=== PATIENT | female | born 1940 | race Caucasian/White ===

== ENCOUNTER → 2016-12-16 | Outpatient (CLI) | payer MEDICARE ==
--- NOTE | 2016-12-16 10:29 | REPMRS ---
Patient History The patient states she has not had a clinical breast exam in over a year. Patient is postmenopausal. No known family history of cancer. Digital Woman Screen Mammo: December 16, 2016 - Exam #: [id number] Bilateral CC and MLO view(s) were taken. Technologist: Daly Mike, Technologist Prior study comparison: December 11, 2015, digital woman screen mammo performed at [facility]. January 09, 2015, digital woman screen mammo performed at [facility] to [facility]. FINDINGS: There are scattered fibroglandular densities. There has been no change in the appearance of the mammogram from the prior studies. There is a mild amount of residual fibroglandular tissue which is fairly symmetric. There is no interval development of dominant mass, architectural distortion, or clustered microcalcification suggestive of malignancy. ASSESSMENT: BI-RADS/ACR category 1 mammogram. Negative. Recommendation Routine screening mammogram in 1 year (for women over age 40). This mammogram was interpreted with the aid of an FDA-approved computer-aided dectection system. Electronically Signed By: Fransico Phelan MD 12/16/16 2442
== END ==
LOC: M WHC 09:44
PROVIDERS: ATTEND Obstetrics & Gynecology
DX: Z12.31 Encounter for screening mammogram for malignant neoplasm of breast (principal); Z78.0 Asymptomatic menopausal state

== ENCOUNTER → 2017-12-29 | Outpatient (CLI) | payer MEDICARE | LOC: M WHC 10:24 | DX: Z12.31 Encounter for screening mammogram for malignant neoplasm of breast (principal) | CPT/HCPCS: 77067 ==

== ENCOUNTER → 2018-12-27 | Outpatient (CLI) | payer MEDICARE ==
--- NOTE | 2018-12-27 13:48 | REPMRS ---
Patient History The patient states she had a clinical breast exam in 11/2018. Patient is postmenopausal and has history of other cancer at age 73. No known family history of cancer. No Hormone Replacement Therapy 3D TOMOSYNTHESIS WAS PERFORMED. The [facility] lifetime risk for breast cancer is 3.0%. Digital Woman Screen Mammo: December 27, 2018 - Exam #: [id number] Bilateral CC and MLO view(s) were taken. Technologist: Daly Mike, Technologist Prior study comparison: December 29, 2017, bilateral digital woman screen mammo performed at [facility]. December 16, 2016, digital woman screen mammo performed at [facility]. FINDINGS: There are scattered fibroglandular densities. There has been no change in the appearance of the mammogram from the prior studies. There is a mild amount of residual fibroglandular tissue which is fairly symmetric. There is no interval development of dominant mass, architectural distortion, or clustered microcalcification suggestive of malignancy. Assessment: BI-RADS/ACR category 1 mammogram. Negative Mammogram. Recommendation Routine screening mammogram in 1 year (for women over age 40). This mammogram was interpreted with the aid of an FDA-approved computer-aided dectection system. Electronically Signed By: Fransico Phelan MD 12/27/18 8955
== END ==
LOC: M WHC 12:19
PROVIDERS: ATTEND Obstetrics & Gynecology
DX: Z12.31 Encounter for screening mammogram for malignant neoplasm of breast (principal); Z85.9 Personal history of malignant neoplasm, unspecified

== ENCOUNTER → 2019-12-29 | Outpatient (CLI) | payer MEDICARE ==
--- NOTE | 2019-12-29 12:12 | REPMRS ---
Patient History The patient states she had a clinical breast exam in 2019. No known family history of cancer. No Hormone Replacement Therapy 3D TOMOSYNTHESIS WAS PERFORMED. The [facility] lifetime risk for breast cancer is 2.7%. Elva lemos. Digital Woman Screen Mammo: December 29, 2019 - Exam #: [id number] Bilateral CC and MLO view(s) were taken. Technologist: Trish Celestin, Technologist Prior study comparison: December 27, 2018, bilateral digital woman screen mammo performed at [facility]. December 29, 2017, bilateral digital woman screen mammo performed at [facility]. FINDINGS: There are scattered fibroglandular densities. There has been no change in the appearance of the mammogram from the prior studies. There is a mild amount of residual fibroglandular tissue which is fairly symmetric. There is no interval development of dominant mass, architectural distortion, or clustered microcalcification suggestive of malignancy. Assessment: BI-RADS/ACR category 1 mammogram. Negative Mammogram. Recommendation Routine screening mammogram in 1 year (for women over age 40). This mammogram was interpreted with the aid of an FDA-approved computer-aided dectection system. Electronically Signed By: Fransico Phelan MD 12/29/19 7330
== END ==
LOC: M WHC 11:00
PROVIDERS: ATTEND Obstetrics & Gynecology
DX: Z12.31 Encounter for screening mammogram for malignant neoplasm of breast (principal)

== ENCOUNTER → 2021-01-01 | Outpatient (CLI) | payer MEDICARE ==
--- NOTE | 2021-01-01 14:06 | REPMRS ---
Patient History The patient states she had a clinical breast exam in December 2020. No known family history of cancer. No Hormone Replacement Therapy Patient states no breast complaints today. Patient has signed MRS History Sheet. Digital Woman Screen Mammo: January 01, 2021 - Exam #: [id number] Bilateral CC and MLO view(s) were taken. Technologist: Natalie Garcia, Technologist Prior study comparison: December 29, 2019, bilateral digital woman screen mammo performed at [facility]. December 27, 2018, bilateral digital woman screen mammo performed at [facility]. FINDINGS: There are scattered fibroglandular densities. Screening. Digital screening (2D) mammography was performed bilaterally in the CC and MLO projections. Additionally, breast tomosynthesis (3D mammography) was performed bilaterally in the CC and MLO projections. Todays exam was compared to the prior exam/exams. By history, the patient has no complaints of a palpable breast abnormality or other significant breast complaints. The breasts are unchanged in size and shape. There are no david-soft tissue densities or spiculated masses. There is no internal architectural distortion. Once again, stable benign appearing calcifications are seen.There are no suspicious david-calcific clusters. Skin thickening or nipple retraction is not present. IMPRESSION: BI-RADS Category 2- Benign Findings. There is no evidence of malignant alteration of the breasts. Followup examination recommended in one year. The Volpara volumetric breast density category is B, there are scattered areas of fibroglandular densities. This mammogram was read with the assistance of [employer],an FDA approved computer aided detection system for mammography. The lifetime Tyrer-Cuzick score is 2.4 % Negative x-ray reports should not delay surgical consultation if a dominant or clinically suspicious mass is present. Not all breast cancers can be identified by mammography. Therefore, we recommend that you continue to perform regular breast self-examination and physical examination and then promptly contact your physician of any concerns or changes. Adenosis and dense breasts may obscure an underlying neoplasm. Assessment: BI-RADS/ACR category 2 mammogram. Benign Findings. Recommendation Routine screening mammogram of both breasts in 1 year. Electronically Signed By: Alvaro Nicholson DO 01/01/21 0989
== END ==
LOC: M WHC 11:28
PROVIDERS: ATTEND Obstetrics & Gynecology
DX: Z12.31 Encounter for screening mammogram for malignant neoplasm of breast (principal)

== ENCOUNTER → 2021-01-17 | Outpatient (CLI) | payer MEDICARE ==
--- NOTE | 2021-01-17 14:08 | REP ---
INDICATION: PMB/N95.0. COMPARISON: None. TECHNIQUE: Transvesical and transvaginal imaging. FINDINGS: The uterus measures 9.5 x 4 x 4.6 cm. The parenchymal echo pattern is within normal limits. The endometrial echo complex is markedly abnormally thickened and markedly heterogenous with both cystic and apparent solid nodular regions. The greatest thickness measures approximately 3 cm. Neither ovary was seen transvesical air transvaginally. Urinary bladder measures 7 x 6 by 5 cm IMPRESSION: Markedly abnormal endometrial echo complex as described above. Neoplasm cannot be ruled out. Exam limitations as described above. <Electronically signed by Alvaro Nicholson > 01/17/21 5710
== END ==
LOC: M WHC 12:28
PROVIDERS: ATTEND Obstetrics & Gynecology
DX: N95.0 Postmenopausal bleeding (principal)

== ENCOUNTER → 2021-02-01 | Outpatient (CLI) | payer MEDICARE ==
[~2021-02-01] MED LIST: AMLO2.5T3 PO; ATEN50TA2 PO; CETI5SOL3 PO; DIAZ2TAB PO; FAMO20TA5 PO; INDA25TAB PO; LEVO150T7 PO; LOSA100T50 PO; MAGN400C PO; MELO15TA28 PO; NOXI1TAB PO; POTA1TAB23 PO; SENN8.6T28 PO; SIMV20TA22 PO; TRAM1CAP15 PO; TRAV04OPD OD
== END ==
LOC: M LABSMTC 09:18
PROVIDERS: ATTEND Anesthesiology
DX: Z01.818 Encounter for other preprocedural examination (principal); Z11.52 Encounter for screening for COVID-19

== ENCOUNTER 2021-02-06 09:27 | Day surgery (SDC) | payer MEDICARE ==
[~2021-02-06] VITALS: Ht 165.1 cm; Wt 105.2 kg
[~2021-02-06 09:27] MED LIST changes: +KETOROLAC 60MG 2ML VIAL As Ordered ONE; +LIDOCAINE 2% 100MG/5ML SDV (FOR ANES.) As Ordered ONE; +LR 1,000 ML IV ONE; +MIDAZOLAM INJ 2MG/2ML VIAL (J2250 PER 1MG) As Ordered ONE; +ONDANSETRON 4MG/2ML VIAL As Ordered ONE; +dexameTHASONE 4 MG/ML 1ML VIAL (J1100 PER 1MG) As Ordered ONE; +fentaNYL 100 MCG/2 ML INJECTION (J3010) As Ordered ONE; +propofoL 200 MG/20 ML VIAL As Ordered ONE
--- OUTSIDE RECORDS SUMMARY | 2021-02-06 09:33 | CCD ---
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 Her contract accountant orders blood work every 6 months, and adds the hemoglobin A1c and TSH at my request, so she will continue having that done through her contract accountant. 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 The patient is educated on the risks, benefits and possible complications, including but not limited to pain, infection, bleeding, scarring, and numbness at the injection site. She verbalizes understanding and agreement. The injection site is marked, and then the left knee is scrubbed with Betadine. A proper timeout is taken, consistent with the guidelines. The injection site is numbed with a small amount of 1% lidocaine, and then the joint is injected using a medial approach with 5 cc of a mixture of 1 ml of Kenalog-40 (triamcinolone acetonide 40 mg/ml, Lot #[id number], Exp: 02/2022) and 4 mL of 1% lidocaine (Lot #[id number], Exp: 05/2024). The knee is cleaned and a bandaid is applied. The patient tolerates the procedure well and there are no complications. We very carefully and thoroughly reviewed the cautions for the next few days in terms of how much to use the knee, and specifically not to do physical therapy. 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 The patient is educated on the risks, benefits and possible complications, including but not limited to pain, infection, bleeding, scarring, and numbness at the injection site. She verbalizes understanding and agreement. The injection site is marked, and then the right knee is scrubbed with Betadine. A proper timeout is taken, consistent with the guidelines. The injection site is numbed with a small amount of 1% lidocaine, and then the joint is injected using a medial approach with 5 cc of a mixture of 1 ml of Kenalog-40 (triamcinolone acetonide 40 mg/ml, Lot #[id number], Exp: 02/2022) and 4 mL of 1% lidocaine (Lot #[id number], Exp: 05/2024). The knee is cleaned and a bandaid is applied. The patient tolerates the procedure well and there are no complications. We very carefully and thoroughly reviewed the cautions for the next few days in terms of how much to use the knee, and specifically not to do physical therapy. I advised Mary Ann that after 2 days she can go back to normal use of her knees Problem Gastroesophageal reflux disease without esophagitis K21.9 Active confirmed 795659779 Problem Primary osteoarthritis, left hand M19.042 Active confirmed 907747296081810 ALLERGIES Allergen (clinical drug ingredient) Drug/Non Drug Allergy do cumented on EMR Reaction Allergy Type Onset Date Status sulfamethoxazole / trimethoprim Bactrim([facility] Code:[address]- 01) itching, swelling, fever Drug Allergy Active Penicillin V-potassium itching, swelling, fever Drug Aller gy Active ENCOUNTERS from 1942 to 2020-11-23 Encounter Location Date Provider Diagnosis [place] [id number] [facility] [phone] [place] [address] Oct, Ana Davenport Tricompartment osteoarthriti s of right knee M17.11 and Arthritis of left knee M17.12 IMMUNIZATIONS Vaccine Route Administration Date Status Influenza Pharmacy Given Unknown Jan 23, 2020 Adminis tered Influenza 18 yrs & older Flublok Unknown Feb 02, 2019 Administered Zoster 50mcg/0.5mL Shingrix Unknown Apr 11, 2019 Admi nistered Zoster 50mcg/0.5mL Shingrix Unknown Feb 02, 2019 Admi nistered Influenza (High Dose 65 & up) Unknown Feb 18, 2018 Ad ministered Pneumococcal Adult 0.5mL Pneumovax 23 Unknown Mar 09 17 Administered Pneumococcal 0.5mL Prevnar 13 IM Intramuscular Apr 02, 2015 A dministered Influenza 6mo & up Fluzone IM Intramuscular Mar 11, 2010 Admi nistered SOCIAL HISTORY Tobacco Use: Social History Observation Description Date Details (start date - stop date) Former Smoker Sex Assigned At : Social History Observation Description Sex Assigned At Unknown Audit Question Answer Notes Total Score: 0 Interpretation: Alcohol Education Sexual Hx: Question Answer Notes Had sex in the last 12 months (vaginal, oral, or anal)? Yes Have you ever had an STD? No with Men only Use protection? No Drug and Alcohol Question Answer Notes Total Score: 0 Interpretation: No problems reported BMI Care Goal Follow-Up Question Answer Notes Above Normal BMI Follow-Up Dietary management educatio n, guidance, and counseling Tobacco Use: Question Answer Notes Are you a: former smoker How long has it been since you last smoked? > 10 years REASON FOR REFERRAL No Information VITAL SIGNS Weight 231.6 lbs Oct, Height 65 in Oct, BMI 38.54 kg/m2 Oct, Heart Rate 64 /min Oct, Respiratory Rate 18 /min Oct, Temperature 97.8 degrees Fahrenheit Oct, Oximetry 97% Oct, Blood pressure systolic 128 mm Hg Oct, Blood pressure diastolic 62 mm Hg Oct, MEDICATIONS Medication SIG (Take, Route, Frequency, Duration) Notes Start Da te End Date Status Physical Therapy evaluate and treat m54.5, low back pain 1-3X/we ek x 25 Sep, 2019 Active Meloxicam 15 MG 1 tablet Orally Once a day for 90 day(s) 1 Mar, Active St Gale Wort 1000 MG 1 capsule before a meal Orally Once a day for 30 day(s) Active Indapamide 2.5 MG 1 tablets Orally Twice a day for 90 days Mar, Active traMADol HCl 50 MG 1 tablet Orally every 6 hrs as needed, mdd=4 for 30 days Oct, Active Simvastatin 20 MG 1 tablet in the evening Orally Once a day for 90 da ys Active Synthroid 150 MCG 1 tablet every morning on an empty stomach Orally Once a day for 90 days Dec, Active Magnesium 300 MG 1 capsule with a meal Orally Once a day for 30 day(s ) Active Physical Therapy evaluate and treat m25.561, m25.652, pain in both knees for pain in both knees, M25.56 3 x/wk x Sep, Active ZyrTEC 10 MG 1 tablet Orally Once a day Active amLODIPine Besylate 2.5 MG 1 tablet Orally Once a day for 90 day s Mar, Active diazePAM 2 MG 1 tablet as needed for trave l anxiety Orally Twice a day, mdd=2 for 15 days Jan, Active Multivitamins 1 tablet Orally Once a day Active Famotidine 20 MG 1 tablet Orally Twice a day for 90 days 1 0 Jan, 2019 Active Atenolol 50 MG 1 tablet Orally Once a day for 90 days Active Travatan 0.004 % 1 drop into affected eye every evening Ophthalm ic Once a day Active Lac-Hydrin 12 % 1 application to affected area Externall y Twice a day as needed Mar, Active Vitamin C 500 MG as directed Orally Active Vitamin D (Cholecalciferol) 25 MCG (1000 UT) 1 capsule Orally Once a day for 30 day(s) Active Cozaar 100 mg 1 tablet Orally Once a day for 90 days 18 , 2013 Active Potassium Chloride 10 MEQ 1 tablet Orally Once a day for 90 Active Physical Therapy evaluate and treat mechanical eval & tx of hands M19.041, M19.042 (arthritis of hands) 3 x/wk x for 30 Days August, Active PROCEDURES from 1942 to 2020-11-23 Procedure Date Ordered Result Body Site Medication: Kenalog 40mg/1mL IA (Triamcinolone) 2020-11-14 N/A Medication: 1% Lidocaine intradermal (xylocaine) 2020-11-14 N/A RESULTS No Results REASON FOR VISIT bilateral knee injections MEDICAL (GENERAL) HISTORY Type Description Date Medical History hypertension Medical History hyperlipidemia Medical History diabetes Medical History hypothyroidism Medical History morbid obesity Medical History palpitations Medical History mild aortic insufficiency Medical History endometrial hyperplasia (Dr. Gonsales) Medical History ichthyosis Medical History hemorrhoid Medical History chronic idiopathic urticaria Medical History hypokalemia/hypo-magnesium Medical History glaucoma Medical History chronic constipation Medical History osteoarthritis Surgical History hysteroscopy 1999 Hospitalization History No Hospitalization history informati on Goals Section No Information Health Concerns No Information MEDICAL EQUIPMENT No Information MENTAL STATUS No Information FUNCTIONAL STATUS No Information ASSESSMENTS Encounter Date Diagnosis Assessment Notes Treatment Notes Treatm ent Clinical Notes Oct, Tricompartment osteoarthritis of right k nee (ICD-10 - M17.11) Informed consent is reviewed and signed. The patient is educated on the risks, benefits and possible complications, including but not limited to pain, infection, bleeding, scarring, and numbness at the injection site. She verbalizes understanding and agreement. The injection site is marked, and then the right knee is scrubbed with Betadine. A proper timeout is taken, consistent with the guidelines. The injection site is numbed with a small amount of 1% lidocaine, and then the joint is injected using a medial approach with 5 cc of a mixture of 1 ml of Kenalog-40 (triamcinolone acetonide 40 mg/ml, Lot #[id number], Exp: 02/2022) and 4 mL of 1% lidocaine (Lot #[id number], Exp: 05/2024). The knee is cleaned and a bandaid is applied. The patient tolerates the procedure well and there are no complications. We very carefully and thoroughly reviewed the cautions for the next few days in terms of how much to use the knee, and specifically not to do physical therapy. I advised Mary Ann that after 2 days she can go back to normal use of her knees Oct, Arthritis of left knee (ICD-10 - M17.12) Informed consent is reviewed and signed. The patient is educated on the risks, benefits and possible complications, including but not limited to pain, infection, bleeding, scarring, and numbness at the injection site. She verbalizes understanding and agreement. The injection site is marked, and then the left knee is scrubbed with Betadine. A proper timeout is taken, consistent with the guidelines. The injection site is numbed with a small amount of 1% lidocaine, and then the joint is injected using a medial approach with 5 cc of a mixture of 1 ml of Kenalog-40 (triamcinolone acetonide 40 mg/ml, Lot #[id number], Exp: 02/2022) and 4 mL of 1% lidocaine (Lot #[id number], Exp: 05/2024). The knee is cleaned and a bandaid is applied. The patient tolerates the procedure well and there are no complications. We very carefully and thoroughly reviewed the cautions for the next few days in terms of how much to use the knee, and specifically not to do physical therapy. I advised Mary Ann that after 2 days she can go back to normal use of her knees PLAN OF TREATMENT Treatment Notes Test Name Order Date DRAIN/INJECT,JOINT/BURSA(major joint) 2020-11-14 Next Appt Details as scheduled in [place], will repeat knee injections in 4 months Reason: Provider Name:Ana Davenport, 12-0 8 01:00:00 PM, [id number], , [place], [id number], Insurance Providers Payer Name Payer Address Payer Phone Insured Name Patient Relati onship to Insured Coverage Start Date Coverage End Date MEDICARE BLUE O [id number] [id number] [place] self
--- OUTSIDE RECORDS SUMMARY | 2021-02-06 09:33 | CCD | Continuity of Care Document ---
Author Author Mary Ann BURGOS Organization Unknown Address [address] [place] [address] Phone [phone] Problems Active Problems Provider Date Endometrial hyperplasia Carla Burgos MD Onset: 2 Social History Type Date Description Comments Sex Unknown Tobacco Use Start: Unknown End: Unknown Quit 1967 Tobacco Use Start: Unknown Non-Smoker, Non-Drinker, Non-Patricio g User Smoking Status Reviewed: 01/01/21 Non-Smoker, Non-Drinker, Non- Drug User Tobacco Use Start: Unknown End: Unknown Patient is a former smoker Exercise Type/Frequency Exercises regularly Allergies, Adverse Reactions, Alerts Active Allergies Criticality Reaction | Severity Comments Date Sulfa Unable to assess criticality 12/31/2006 PCN Unable to assess criticality 12/31/2006 Medications Active Medications SIG Qnty Indications Ordering Provide r Date Fluconazole 150mg Tablets 1 by mouth now and one tomorrow 2tabs B37.3 Carla Burgos MD 12/29/2017 Cozaar 50mg Tablets po bid Carla Burgos MD 02/25/2011 Travatan 0.004% Solution 1 Drop Each Eye Q hs Carla Burgos MD 12/31/2006 Levothyroxine 150McG Tablets Carla Burgos MD 12/23/2005 Zocor 20mg Tablets Carla Burgos MD 12/10/2005 Atenolol 25mg Tablets Carla Burgos MD 12/10/2005 Indapamide 1.25mg Tablets Carla Burgos MD 12/10/2005 Potassium Chloride 20Meq Packet Unknown Meloxicam 7.5mg Tablets Unknown Acetazolamide 250mg Tablets Unknown Immunizations Description No Information Available Vital Signs Date Vital Result Comment 01/01/2021 10:37am BP Systolic 134 mmHg BP Diastolic 66 mmHg Height 64 inches 5'4" Weight 230.00 lb BMI (Body Mass Index) 39.5 kg/m2 BSA (Body Surface Area) 2.08 m2 12/29/2019 10:14am BP Systolic 158 mmHg BP Diastolic 70 mmHg Height 64 inches 5'4" Weight 239.00 lb BMI (Body Mass Index) 41.0 kg/m2 BSA (Body Surface Area) 2.11 m2 Results Test Acquired Date Facility Test Result H/L Range Note Thinprep W/Reflex HR HPV If Asc-US 01/01/2021 [facility] TP Reflex HPV ASCUS Normal Normal 1 TP Reflex HPV ASCUS SEE IMAGE Gynecologic Biopsy 01/01/2021 [facility] Gynecologic Biopsy See Results 2 Gynecologic Biopsy SEE IMAGE 1 SPECIME N PART A. Cervical, Endocervical, ThinPrep Pap (Rn Wound Care) CYTOLOGY HX-------- Other Information: Post-menopausal Previous Normal Pap: 12/29/19 FINAL DIAGNOSIS---- INTERPRETATION: Negative for Intraepithelial Lesion or Malignancy. SPECIMEN ADEQUACY:Satisfactory for evaluation. Endocervical/transformation zone component present. 2 SPECIME N PART A. Endometrial CLINICAL HX-------- N95.0 Postmenopausal bleeding FINAL DIAGNOSIS---- A. Endometrial: - Scant fragments of benign, inactive, s uperficial endometrial tissue in a background of mucin and blood. - Fragments of benign endometrium with f eatures suggestive of an endometrial polyp. - See comment. DIAGNOSIS COMMENT-- In the appropriate clinical setting, which includes a post-menopausal patient with a thin endometrial stripe on ultrasound, scant fragments of tissue may in fact be diagnostic and account manager sales representative of the endometrium. Studies have documented highly variable rates of endometrial atrophy that range from 25-82% as the cause of post-menopausal bleeding. Additionally, atrophic endometrium can occur in reproductive-age patients with premature ovarian failure, either idiopathic or due to radiation or chemotherapy for malignancy. Clinical correlation is advised. Diagnosis of Endometrial Biopsies and Curettings: A Practical Approach. Zack Kelley, Rohit Veronica. 2005. Gonzalez. p.[phone]. MICRO DIAGNOSIS---- A. The stain quality is adequate. The microscopic findings are reflected in the diagnosis. GROSS DESCRIPTION-- A. Received in formalin; Designated: "Endometrial" Inventory: Mucus, tissue, clot Aggregate dimensions: 2.0 x 1.0 x 0.3 cm The specimen is submitted entirely as (A1), multiple pcs. Procedures Date Code Description Status 01/01/2021 80026 Office/Outpatient Established Lo w MDM 20-29 Min Completed 01/01/2021 88240 Endometrial Biopsy W/O Cervical Dilation Completed 12/29/2017 18566953 Mammogram Completed 01/09/2015 [id number] Mammogram Completed 02/25/2011 [id number] Bone Mineral Density Test Comple scot 10/19/2005 [id number] Bone Mineral Density Test Comple [employer] Description No Information Available Encounters Type Date Location Provider Dx Diagnosis Office Visit 01/01/2021 10:30a [facility] risk lead Carla Burgos MD N9 5.0 Postmenopausal bleeding Z91.89 Oth personal risk factors, n ot elsewhere classified Z01.411 Encntr for director of design exam (general ) (routine) w abnormal findings Z12.4 Encounter for screening for malignant neoplasm of cervix Z12.39 Encounter for oth screening for malignant neoplasm of breast Assessments Date Code Description Provider 01/01/2021 N95.0 Postmenopausal bleeding Carla Burgos MD 01/01/2021 Z91.89 Other specified pers onal risk factors, not elsewhere classified Carla Burgos MD 01/01/2021 Z01.411 Encounter for gyneco logical examination (general) (routine) with abnormal findings Carla Burgos MD 01/01/2021 Z12.4 Encounter for screening for nicole gnant neoplasm of cervix Carla Burgos MD 01/01/2021 Z12.39 Encounter for other screening for malignant neoplasm of breast Carla Burgos MD Plan of Treatment Future Appointment(s):* 01/07/2022 10:45 am - Carla Burgos MD at [facility] risk lead 01/01/2021 - Carla Burgos MD* N95.0 Postmenopausal bleeding* New Xrays:* Pelvic Ultrasound, Ordered: 01/01/21 * Z91.89 Other specified personal risk factors, not elsewhere classified * Z01.411 Encounter for gynecological examination (general) (routine) with abnormal findings * Z12.4 Encounter for screening for malignant neoplasm of cervix * Z12.39 Encounter for other screening for malignant neoplasm of breast Functional Status Description No Information Available Mental Status Description No Information Available Referrals Description No Information Available
--- OUTSIDE RECORDS SUMMARY | 2021-02-06 09:33 | CCD ---
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 Her unscrambler orders blood work every 6 months, and adds the hemoglobin A1c and TSH at my request, so she will continue having that done through her unscrambler. 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 The [...] of Kenalog-40 (triamcinolone acetonide 40 mg/ml, Lot #[id number], Exp: 02/2022) and 4 mL of 1% lidocaine (Lot #[id number], Exp: 05/2024). 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 The [...] of Kenalog-40 (triamcinolone acetonide 40 mg/ml, Lot #[id number], Exp: 02/2022) and 4 mL of 1% lidocaine (Lot #[id number], Exp: 05/2024). The knee is cleaned and [...] reflux disease without esophagitis K21.9 Active confirmed 322313362 Problem Primary osteoarthritis, left hand M19.042 Active confirmed 724189793493979 ALLERGIES Allergen (clinical drug ingredient) Drug/Non Drug Allergy do cumented on EMR Reaction Allergy Type Onset Date Status sulfamethoxazole / trimethoprim Bactrim([facility] Code:[address]- 01) itching, swelling, fever Drug Allergy Active Penicillin V-potassium itching, swelling, fever Drug Aller gy Active ENCOUNTERS from 1942 to 2021-02-04 Encounter Location Date Provider Diagnosis [facility] [address] [place] [address] 28 Dec, 2020 Ana Davenport IMMUNIZATIONS Vaccine Route Administration Date Status Influenza [...] REASON FOR REFERRAL No Information VITAL SIGNS No information MEDICATIONS Medication SIG (Take, Route, Frequency, Duration) Notes Start Da te End Date Status Atenolol 50 MG 1 tablet Orally Once a day for 90 days Active Vitamin C 500 MG as directed Orally Active Meloxicam 15 MG 1 tablet Orally Once a day for 90 day(s) 1 Mar, Active amLODIPine Besylate 2.5 MG 1 tablet Orally Once a day for 90 day s Cardilogy Mar, Active Vitamin D (Cholecalciferol) 25 MCG (1000 UT) 1 capsule Orally Once a day for 30 day(s) Active Potassium Chloride 10 MEQ 1 tablet Orally Once a day for 90 Active Synthroid 150 MCG 1 tablet every morning on an empty stomach Orally Once a day for 90 days Dec, Active Magnesium 300 MG 1 capsule with a meal Orally Once a day for 30 day(s ) Active Multivitamins 1 tablet Orally Once a day Active ZyrTEC 10 MG 1 tablet Orally Once a day Active Physical Therapy evaluate and treat m25.561, m25.652, pain in both knees for pain in both knees, M25.56 3 x/wk x Sep, Active Lac-Hydrin 12 % 1 application to affected area Externall y Twice a day as needed Mar, Active Travatan 0.004 % 1 drop into affected eye every evening Ophthalm ic Once a day Active Physical Therapy evaluate and treat mechanical eval & tx of hands M19.041, M19.042 (arthritis of hands) 3 x/wk x for 30 Days August, Active Cozaar 100 mg 1 tablet Orally Once a day for 90 days 18 2013 Active diazePAM 2 MG 1 tablet as needed for trave l anxiety Orally Twice a day, mdd=2 for 15 days Jan, Active Famotidine 20 MG 1 tablet Orally Twice a day for 90 days 1 0 Jan, 2019 Active Simvastatin 20 MG 1 tablet in the evening Orally Once a day for 90 da ys Active Physical Therapy evaluate and treat m54.5, low back pain 1-3X/we ek x 25 Sep, 2019 Active traMADol HCl 50 MG 1 tablet Orally every 6 hrs as needed, mdd=4 for 30 days Jan, Active Indapamide 2.5 MG 1 tablets Orally Twice a day for 90 days Mar, Active [facility] Gale Wort 1000 MG 1 capsule before a meal Orally Once a day for 30 day(s) Active PROCEDURES No Information RESULTS No Results REASON FOR VISIT PT script for back MEDICAL (GENERAL) HISTORY Type Description Date Medical History hypertension Medical History hyperlipidemia Medical History diabetes Medical History hypothyroidism Medical History morbid obesity Medical History palpitations Medical History mild aortic insufficiency Medical History endometrial hyperplasia (Dr. Gonsales) Medical History ichthyosis Medical History hemorrhoid Medical History chronic idiopathic urticaria Medical History hypokalemia/hypo-magnesium Medical History glaucoma Medical History chronic constipation Medical History osteoarthritis Surgical History hysteroscopy 1997, 1999 Hospitalization History No Hospitalization history informati on Goals Section No Information Health Concerns No Information MEDICAL EQUIPMENT No Information MENTAL STATUS No Information FUNCTIONAL STATUS No Information ASSESSMENTS No Information PLAN OF TREATMENT Medication Medication Name Sig Start Date Stop Date Physical Therapy evaluate and treat m25.561, m25.652, pain in both knees for pain in both knees, M25.56 3 x/wk x 29 Sep, 2017 traMADol HCl 50 MG 1 tablet Orally every 6 hrs as needed, m dd=4 for 30 days Jan, Synthroid 150 MCG 1 tablet every morning on an empty stomach Orally Once a day for 90 days Dec, Meloxicam 15 MG 1 tablet Orally Once a day for 90 day(s) Mar, Cozaar 100 mg 1 tablet Orally Once a day for 90 days Dec, 014 Simvastatin 20 MG 1 tablet in the evening Orally Once a day for 90 days Physical Therapy evaluate and treat m54.5, low back pain 1-3 X/week x 25 Sep, 2019 Next Appt Details Provider Name:Ana Davenport, 2018-12-0 8 01:00:00 PM, [address], , [place], [address], Insurance Providers Payer Name Payer Address Payer Phone Insured Name Patient Relati onship to Insured Coverage Start Date Coverage End Date MEDICARE BLUE PPO [address] [facility] BLUE [address] [place] [id number] MARY ANN RIVERA
--- OUTSIDE RECORDS SUMMARY | 2021-02-06 09:33 | CCD | Continuity of Care Document ---
Author Author Mary Ann BURGOS Organization Unknown Address [address] [place] [address] Phone [phone] Problems Active Problems Provider Date Endometrial hyperplasia [...] BSA (Body Surface Area) 2.11 m2 Results Description No Information Available Procedures Date Code Description Status 01/01/2021 95895 Office/Outpatient Established Lo w MDM 20-29 Min Completed 01/01/2021 02831 Endometrial Biopsy W/O Cervical Dilation Completed 12/29/2017 [id number] Mammogram Completed 01/09/2015 [id number] Mammogram Completed 02/25/2011 [id number] Bone Mineral Density Test Comple scot 10/19/2005 [id number] Bone Mineral Density Test Comple scot Medical Devices Description No Information Available Encounters Type Date Location Provider Dx Diagnosis Office Visit 01/01/2021 10:30a [facility] painter helper spray Carla Burgos MD N9 5.0 Postmenopausal bleeding Z91.89 Oth personal risk factors, n ot elsewhere classified Z01.411 Encntr for rn obgyn exam (general ) (routine) w abnormal findings [...] 10:45 am - Carla Burgos MD at [facility] painter helper spray 01/01/2021 - Carla Burgos MD* N95.0 Postmenopausal bleeding* New Labs:* Gynecologic Biopsy, Ordered: 01/01/21 * New Xrays:* Pelvic Ultrasound, Ordered: 01/01/21 * Z91.89 Other specified personal risk factors, not elsewhere classified * Z01.411 Encounter for gynecological examination (general) (routine) with abnormal findings * Z12.4 Encounter for screening for malignant neoplasm of cervix* New Labs:* Thinprep W/Reflex HR HPV If Asc-US, Ordered: 01/01/21 * Z12.39 Encounter for other screening for malignant neoplasm of breast Functional Status Description No Information Available Mental Status Description No Information Available Referrals Description No Information Available
--- OUTSIDE RECORDS SUMMARY | 2021-02-06 09:33 | CCD ---
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 Her transformer stock clerk orders blood work every 6 months, and adds the hemoglobin A1c and TSH at my request, so she will continue having that done through her transformer stock clerk. 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 The [...] of Kenalog-40 (triamcinolone acetonide 40 mg/ml, Lot #[id number], Exp: 02/2022) and 4 mL of 1% lidocaine (Lot #[id number], Exp: 05/2024). 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 The [...] of Kenalog-40 (triamcinolone acetonide 40 mg/ml, Lot #[id number], Exp: 02/2022) and 4 mL of 1% lidocaine (Lot #[id number], Exp: 05/2024). The knee is cleaned and [...] reflux disease without esophagitis K21.9 Active confirmed 543258624 Problem Primary osteoarthritis, left hand M19.042 Active confirmed 944149609878038 ALLERGIES Allergen (clinical drug ingredient) Drug/Non Drug Allergy do cumented on EMR Reaction Allergy Type Onset Date Status sulfamethoxazole / trimethoprim Bactrim([facility] Code:[address]- 01) itching, swelling, fever Drug Allergy Active Penicillin V-potassium itching, swelling, fever Drug Aller gy Active ENCOUNTERS from 1942 to 2020-12-24 Encounter Location Date Provider Diagnosis [facility] [address] [place] [address] Nov, Ana Davenport IMMUNIZATIONS Vaccine Route Administration Date [...] Once a day for 30 day(s) Active diazePAM 2 MG 1 tablet as needed for trave l anxiety Orally Twice a day, mdd=2 for 15 days Jan, Active traMADol HCl 50 MG 1 tablet Orally every 6 hrs as needed, mdd=4 for 30 days Oct, Active Multivitamins 1 tablet Orally Once a day Active Synthroid 150 MCG 1 tablet every morning on an empty stomach Orally Once a day for 90 days Dec, Active Magnesium 300 MG 1 capsule with a meal Orally Once a day for 30 day(s ) Active Simvastatin 20 MG 1 tablet in the evening Orally Once a day for 90 da ys Active ZyrTEC 10 MG 1 tablet Orally Once a day Active amLODIPine Besylate 2.5 MG 1 tablet Orally Once a day for 90 day s Cardilogy Mar, Active Physical Therapy evaluate and treat m25.561, m25.652, pain in both knees for pain in both knees, M25.56 3 x/wk x 29 Sep, 2017 Active Potassium Chloride 10 MEQ 1 tablet Orally Once a day for 90 Active Famotidine 20 MG 1 tablet Orally Twice a day for 90 days 1 Jan, 2019 Active Atenolol 50 MG 1 tablet Orally Once a day for 90 days Active Indapamide 2.5 MG 1 tablets Orally Twice a day for 90 days Mar, Active Lac-Hydrin 12 % 1 application to affected area Externall y Twice a day as needed Mar, Active Vitamin C 500 MG as directed Orally Active Vitamin D (Cholecalciferol) 25 MCG (1000 UT) 1 capsule Orally Once a day for 30 day(s) Active Cozaar 100 mg 1 tablet Orally Once a day for 90 days 18 Se p, 2013 Active Travatan 0.004 % 1 drop into affected eye every evening Ophthalm ic Once a day Active Physical Therapy evaluate and treat mechanical eval & tx of hands M19.041, M19.042 (arthritis of hands) 3 x/wk x for 30 Days August, Active PROCEDURES No Information RESULTS No Results REASON FOR VISIT updated order MEDICAL (GENERAL) HISTORY Type Description Date Medical [...] both knees, M25.56 3 x/wk x Sep, Next Appt Details Provider Name:Ana Davenport, [birth year]0 8 01:00:00 PM, [address], , [place], [address], Insurance Providers Payer Name Payer Address Payer Phone Insured Name Patient Relati onship to Insured Coverage Start Date Coverage End Date MEDICARE BLUE PPO [address] [facility] BL[address] [id number] MARY ANN RIVERA self
--- OUTSIDE RECORDS SUMMARY | 2021-02-06 09:33 | CCD | Continuity of Care Document ---
Author Author Mary Ann BURGOS Organization Unknown Address [address] [place] [address] Phone [phone] Problems Active Problems Provider Date Endometrial hyperplasia [...] N PART A. Cervical, Endocervical, ThinPrep Pap ([employer]) CYTOLOGY HX-------- Other Information: Post-menopausal Previous Normal [...] tissue may in fact be diagnostic and provider relations representative of the endometrium. Studies have documented [...] pcs. Procedures Date Code Description Status 01/01/2021 40560 Office/Outpatient Established Lo w MDM 20-29 Min Completed 01/01/2021 94271 Endometrial Biopsy W/O Cervical Dilation Completed 12/29/2017 [id number] Mammogram Completed 01/09/2015 [id number] Mammogram Completed 02/25/2011 [id number] Bone Mineral Density Test Comple scot 10/19/2005 [id number] Bone Mineral Density Test Comple Group [facility] [employer] Description No Information Available Encounters Type Date Location Provider Dx Diagnosis Office Visit 01/01/2021 10:30a [facility] cloth shearing supervisor Carla Burgos MD N9 5.0 Postmenopausal bleeding Z91.89 Oth personal risk factors, n ot elsewhere classified Z01.411 Encntr for badger distiller operator exam (general ) (routine) w abnormal findings [...] 10:45 am - Carla Burgos MD at [facility] cloth shearing supervisor 01/01/2021 - Carla Burgos MD* N95.0 Postmenopausal [...]
--- OUTSIDE RECORDS SUMMARY | 2021-02-06 09:33 | CCD ---
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 Her casing in line setter orders blood work every 6 months, and adds the hemoglobin A1c and TSH at my request, so she will continue having that done through her casing in line setter. 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 Active confirmed 579593678192169 Problem Hypokalemia E87.6 Active confirmed 30388375 Problem Essential hypertension I10 Active confirmed 36096472 Well controlled on current regimen of atenolol, Cozaar, amlodipine, and indapamide, no changes Problem Primary osteoarthritis, right hand M19.041 Activ e confirmed 020684693351553 Problem Aortic valve disorder I35.9 Active confirmed 1999186 Problem Carotid stenosis I65.29 Active confirmed 645 57143 Problem Hypothyroidism E03.9 Active confirmed 53084 008 Well controlled on current regimen of Synthroid 150 mcg daily, no changes Problem Allergic rhinitis due to pollen J30.1 Active confi rmed 11812097 Problem Other chronic pain G89.29 Active confirmed 8 1399734 Problem 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 The patient is educated on the risks, benefits and possible complications, including but not limited to pain, infection, bleeding, scarring, and numbness at the injection site. She verbalizes understanding and agreement. The injection site is marked, and then the right knee is scrubbed with Betadine. The injection site is numbed with a small amount of 1% Xylocaine, and then joint is injected using a lateral approach with 6 cc of a mixture of 1 ml of Kenalog-40 (triamcinolone acetonide 40 mg/ml, Lot #[id number], expiration 11/2019) and 5 mL of 1% Xylocaine. The p atient tolerates the procedure well and there are no complications Problem Gastroesophageal reflux disease without esophagitis K21.9 Active confirmed 967854880 ALLERGIES Allergen (clinical drug ingredient) Drug/Non Drug Allergy do cumented on EMR Reaction Allergy Type Onset Date Status sulfamethoxazole / trimethoprim Bactrim([facility] Code:[address]- 01) itching, swelling, fever Drug Allergy Active Penicillin V-potassium itching, swelling, fever Drug Aller gy Active ENCOUNTERS from 1942 to 2020-11-08 Encounter Location Date Provider Diagnosis [place] [id number] [facility] [phone] [place] [address] Oct, Ana Davenport Essential hypertension I10 IMMUNIZATIONS Vaccine Route Administration Date Status Influenza [...] Notes Start Da te End Date Status Vitamin C 500 MG as directed Orally Active Magnesium 300 MG 1 capsule with a meal Orally Once a day for 30 day(s ) Active Multivitamins 1 tablet Orally Once a day Active Lac-Hydrin 12 % 1 application to affected area Externall y Twice a day as needed Mar, Active Magnesium Hydroxide 400 MG 3 tablets Orally Twice a day for 30 day(s) Active Synthroid 150 MCG 1 tablet every morning on an empty stomach Orally Once a day for 90 days Dec, Active Vitamin D (Cholecalciferol) 25 MCG (1000 UT) 1 capsule Orally Once a day for 30 day(s) Active Naproxen 500 MG 1 tablet with food or milk a s needed Orally Twice a day as needed for 30 Days Sep, Active Travatan 0.004 % 1 drop into affected eye every evening Ophthalm ic Once a day Active Atenolol 50 MG 1 tablet Orally Once a day for 90 days Active Potassium Chloride 10 MEQ 1 tablet Orally Once a day for 90 days Active traMADol HCl 50 MG 1 tablet Orally every 6 hrs as needed, mdd=4 for 30 days Oct, Active St Gale Wort 300 MG 1 capsule Orally Once a day for 30 day(s) Active Meloxicam 15 MG 1 tablet Orally Once a day for 90 day(s) 1 8 Mar, 2018 Active diazePAM 2 MG 1 tablet as needed for trave l anxiety Orally Twice a day, mdd=2 for 15 days 10 Jan, 2019 Active amLODIPine Besylate 2.5 MG 1 tablet Orally Once a day for 90 day s 12 Mar, 2016 Active ZyrTEC 10 MG 1 tablet Orally Once a day Active Cozaar 100 mg 1 tablet Orally Once a day for 90 days 18 Se p, 2013 Active Simvastatin 20 MG 1 tablet in the evening Orally Once a day for 90 da ys Active Physical Therapy evaluate and treat mechanical eval & tx of hands M19.041, M19.042 (arthritis of hands) 3 x/wk x for 30 Days August, Active St Gale Wort 1000 MG 1 capsule before a meal Orally Once a day for 30 day(s) Active CeleBREX 100 MG 1 capsule with food Orally Once a day for 30 Day s Feb, Active Famotidine 20 MG 1 tablet Orally Twice a day for 90 days 1 0 Jan, 2019 Active Indapamide 2.5 MG 1 tablets Orally Twice a day for 90 days Mar, Active Physical Therapy evaluate and treat m25.561, m25.652, pain in both knees for pain in both knees, M25.56 3 x/wk x Sep, Active Physical Therapy evaluate and treat m54.5, lbp 1-3X/week x for 3 0 Days Sep, Active PROCEDURES No Information RESULTS No Results REASON FOR VISIT Potassium Chloride 10 MEQ Tablet Extended Release MEDICAL (GENERAL) HISTORY Type Description Date Medical [...] Treatment Notes Treatm ent Clinical Notes Oct, Essential hypertension (ICD-10 - I10) PLAN OF TREATMENT Medication Medication Name Sig Start Date Stop Date Potassium Chloride 10 MEQ 1 tablet Orally Once a day for 90 days Physical Therapy evaluate and treat m25.561, m25.652, pain in both knees for pain in both knees, M25.56 3 x/wk x 29 Sep, 2017 Naproxen 500 MG 1 tablet with food or milk a s needed Orally Twice a day as needed for 30 Days Sep, Physical Therapy evaluate and treat mechanical eval & tx of hands M19.041, M19.042 (arthritis of hands) 3 x/wk x for 30 Days August, Next Appt Details Provider Name:Ana Davenport, 2020-10- 2 03:00:00 PM, [address] [facility], , [place], [address], Provider Name:Ana Davenport, 2021-03-0 8 01:00:00 PM, [address], , [place], [address], Insurance Providers Payer Name Payer Address Payer Phone Insured Name Patient Relati onship to Insured Coverage Start Date Coverage End Date MEDICARE BLUE PPO [address] [facility] BLUE CROSS [address] [facility] [id number] [place] self
--- OUTSIDE RECORDS SUMMARY | 2021-02-06 09:33 | CCD | Continuity of Care Document ---
Author Author Mary Ann BURGOS Organization Unknown Address [address] [place] [address] Phone [phone] Problems Active Problems Provider Date Endometrial hyperplasia Carla Burgos MD Onset: 2 Social History Type Date Description Comments Sex Unknown Tobacco Use Start: Unknown End: Unknown Quit 1967 Tobacco Use Start: Unknown Non-Smoker, Non-Drinker, Non-Patricio g User Smoking Status Reviewed: 01/22/21 Non-Smoker, Non-Drinker, Non- Drug User Tobacco Use Start: Unknown End: Unknown Patient is a former smoker Exercise Type/Frequency Exercises regularly Allergies and adverse reactions Active Allergies Criticality Reaction | Severity Comments [...] W/Reflex HR HPV If Asc-US 01/01/2021 Propa TP Reflex HPV ASCUS Normal Normal 1 TP Reflex HPV ASCUS SEE IMAGE Gynecologic Biopsy 01/01/2021 Propath Gynecologic Biopsy See Results 2 Gynecologic Biopsy SEE IMAGE 1 SPECIME N PART A. Cervical, Endocervical, ThinPrep Pap (Electronic Intelligence Officer) CYTOLOGY HX-------- Other Information: Post-menopausal Previous Normal [...] tissue may in fact be diagnostic and lifeline representatives of the endometrium. Studies have documented highly [...] multiple pcs. Procedures Date Code Description Status 01/22/2021 24126 Office/Outpatient Established Mo d MDM 30-39 Min Completed 01/01/2021 46415 Office/Outpatient Established Lo w MDM 20-29 Min Completed 01/01/2021 30463 Endometrial Biopsy W/O Cervical Dilation Completed 12/29/2017 [id number] Mammogram Completed 01/09/2015 [id number] Mammogram Completed 02/25/2011 [id number] Bone Mineral Density Test Comple scot 10/19/2005 [id number] Bone Mineral Density Test Comple SmartFleet Description No Information Available Encounters Type Date Location Provider Dx Diagnosis Office Visit 01/22/2021 9:45a [facility] lift supervisor Carla Burgos MD N9 5.0 Postmenopausal bleeding R93.89 Abnormal findings on dx imag ing of oth body structures 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 Office Visit 01/01/2021 10:30a [place] [facility] lift supervisor Carla Burgos MD N9 5.0 Postmenopausal bleeding Z91.89 Oth personal risk factors, n ot elsewhere classified Z01.411 Encntr for salesperson meats exam (general ) (routine) w abnormal findings Z12.4 Encounter for screening for malignant neoplasm of cervix Z12.39 Encounter for ot screening for malignant neoplasm of breast Assessments Date Code Description Provider 01/22/2021 N95.0 Postmenopausal bleeding Carla Burgos MD 01/22/2021 R93.89 Abnormal findings on diagnostic imaging of other specified body structures Carla Burgos MD 01/22/2021 D39.0 Neoplasm of uncertain behavior o f uterus Carla Burgos MD 01/01/2021 N95.0 Postmenopausal bleeding Carla Burgos MD [...] Burgos MD Plan of Treatment Future Appointment(s):* 02/24/2021 12:00 pm - Carla Burgos MD at [facility] lift supervisor * 02/13/2021 10:30 am - Carla Burgos MD at [facility] * 01/07/2022 10:45 am - Carla Burgos MD at [place] [facility] lift supervisor 01/22/2021 - Carla Burgos MD* N95.0 Postmenopausal bleeding * R93.89 Abnormal findings on diagnostic imaging of other specified body structures * 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
--- OUTSIDE RECORDS SUMMARY | 2021-02-06 09:33 | CCD | Continuity of Care Document ---
Author Author Mary Ann BURGOS Organization Unknown Address [address] [place] [address] Phone [phone] Problems Active Problems Provider Date Endometrial hyperplasia Carla Burgos MD Onset: 2 Social History Type Date Description Comments Sex Unknown Tobacco Use Start: Unknown End: Unknown Quit 1967 Tobacco Use Start: Unknown Non-Smoker, Non-Drinker, Non-Patricio g User Smoking Status Reviewed: 12/29/19 Non-Smoker, Non-Drinker, Non- Drug User Tobacco Use [...] Information Available Procedures Date Code Description Status 12/29/2017 [id number] Mammogram Completed 01/09/2015 [id number] Mammogram Completed 02/25/2011 [id number] Bone Mineral Density Test Comple scot 10/19/2005 [id number] Bone Mineral Density Test Comple scot Medical Devices Description No Information Available Encounters Description No Information Available Assessments Date Code Description Provider 01/01/2021 N95.0 Postmenopausal bleeding Carla Burgos MD Plan of Treatment Future Appointment(s):* 01/07/2022 10:45 am - Carla Burgos MD at [facility] aerobics instructor 01/01/2021 - Carla Burgos MD* N95.0 Postmenopausal bleeding* New Xrays:* Pelvic Ultrasound, Ordered: 01/01/21 Functional Status Description No Information Available Mental Status Description No Information Available Referrals Description No Information Available
--- OUTSIDE RECORDS SUMMARY | 2021-02-06 09:33 | CCD ---
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 Her patient services rep orders blood work every 6 months, and adds the hemoglobin A1c and TSH at my request, so she will continue having that done through her patient services rep. 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 The [...] of Kenalog-40 (triamcinolone acetonide 40 mg/ml, Lot #[id number], Exp: 02/2022) and 4 mL of 1% lidocaine (Lot #[id number], Exp: 05/2024). 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 The [...] of Kenalog-40 (triamcinolone acetonide 40 mg/ml, Lot #[id number], Exp: 02/2022) and 4 mL of 1% lidocaine (Lot #[id number], Exp: 05/2024). 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 Code:[address]- 01) itching, swelling, fever Drug Allergy Active Penicillin V-potassium itching, swelling, fever Drug Aller gy Active ENCOUNTERS from 1942 to 2021-01-29 Encounter Location Date Provider Diagnosis [facility] [address] [place] [address] Jan, 2021 Jj Villatoro Mixed hyperlipidemia E78.2 ; Pain in rig ht knee M25.561 and Essential hypertension I10 IMMUNIZATIONS Vaccine Route Administration [...] Notes Start Da te End Date Status Famotidine 20 MG 1 tablet Orally Twice a day for 90 days 1 Jan, 2019 Active Physical Therapy evaluate and treat m25.561, m25.652, pain in both knees for pain in both knees, M25.56 3 x/wk x Sep, Active Physical Therapy evaluate and treat m54.5, low back pain 1-3X/we ek x Sep, Active Travatan 0.004 % 1 drop into affected eye every evening Ophthalm ic Once a day Active Physical Therapy evaluate and treat mechanical eval & tx of hands M19.041, M19.042 (arthritis of hands) 3 x/wk x for 30 Days August, Active Simvastatin 20 MG 1 tablet in the evening Orally Once a day for [address] Gale Wort 1000 MG 1 capsule before a meal Orally Once a day for 30 day(s) Active Synthroid 150 MCG 1 tablet every morning on an empty stomach Orally Once a day for 90 days Dec, Active ZyrTEC 10 MG 1 tablet Orally Once a day Active Cozaar 100 mg 1 tablet Orally Once a day for 90 days 2013 Active Indapamide 2.5 MG 1 tablets Orally Twice a day for 90 days Mar, Active Meloxicam 15 MG 1 tablet Orally Once a day for 90 day(s) 1 Mar, Active Magnesium 300 MG 1 capsule with a meal Orally Once a day for 30 day(s ) Active amLODIPine Besylate 2.5 MG 1 tablet Orally Once a day for 90 day s Cardilogy Mar, Active Atenolol 50 MG 1 tablet Orally Once a day for 90 days Active Potassium Chloride 10 MEQ 1 tablet Orally Once a day for 90 Active diazePAM 2 MG 1 tablet as needed for trave l anxiety Orally Twice a day, mdd=2 for 15 days Jan, Active Vitamin C 500 MG as directed Orally Active Vitamin D (Cholecalciferol) 25 MCG (1000 UT) 1 capsule Orally Once a day for 30 day(s) Active traMADol HCl 50 MG 1 tablet Orally every 6 hrs as needed, mdd=4 for 30 days Jan, Active Multivitamins 1 tablet Orally Once a day Active Lac-Hydrin 12 % 1 application to affected area Externall y Twice a day as needed Mar, Active PROCEDURES No Information RESULTS No Results REASON FOR VISIT refills MEDICAL (GENERAL) HISTORY Type Description Date Medical [...] Notes Treatment Notes Treatm ent Clinical Notes Jan, Mixed hyperlipidemia (ICD-10 - E78.2) Jan, Pain in right knee (ICD-10 - M25.561) Jan, Essential hypertension (ICD-10 - I10) PLAN OF TREATMENT Medication Medication Name Sig Start Date Stop Date Cozaar 100 mg 1 tablet Orally Once a day for 90 days Dec, 014 traMADol HCl 50 MG 1 tablet Orally every 6 hrs as needed, m dd=4 for 30 days Jan, Simvastatin 20 MG 1 tablet in the evening Orally Once a day for 90 days Synthroid 150 MCG 1 tablet every morning on an empty stomach Orally Once a day for 90 days Dec, Physical Therapy evaluate and treat m25.561, m25.652, pain in both knees for pain in both knees, M25.56 3 x/wk x Sep, Meloxicam 15 MG 1 tablet Orally Once a day for 90 day(s) Mar, Next Appt Details Provider Name:Ana Davenport, 2020-12-0 8 01:00:00 PM, [address] , [place], [address], Insurance Providers Payer Name Payer Address Payer Phone Insured Name Patient Relati onship to Insured Coverage Start Date Coverage End Date MEDICARE BLUE O [address] [id number] [place] self
--- OUTSIDE RECORDS SUMMARY | 2021-02-06 09:33 | CCD ---
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 Her filler picker orders blood work every 6 months, and adds the hemoglobin A1c and TSH at my request, so she will continue having that done through her filler picker. 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 The [...] of Kenalog-40 (triamcinolone acetonide 40 mg/ml, Lot #[id number], Exp: 02/2022) and 4 mL of 1% lidocaine (Lot #[id number], Exp: 05/2024). 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 The [...] of Kenalog-40 (triamcinolone acetonide 40 mg/ml, Lot #[id number], Exp: 02/2022) and 4 mL of 1% lidocaine (Lot #[id number], Exp: 05/2024). 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 Active confirmed 870498947267854 ALLERGIES Allergen (clinical drug ingredient) Drug/Non Drug Allergy do cumented on EMR Reaction Allergy Type Onset Date Status sulfamethoxazole / trimethoprim Bactrim([facility] Code:[address]- 01) itching, swelling, fever Drug Allergy Active Penicillin V-potassium itching, swelling, fever Drug Aller gy Active ENCOUNTERS from 1940 to 2020-12-24 Encounter Location Date Provider Diagnosis [facility] [address] [place] [address] Nov, Ana Davenport Pain in left knee M25.562 IMMUNIZATIONS Vaccine Route Administration Date Status Influenza [...] Once a day for 90 days 18 p, 2013 Active Travatan 0.004 % 1 drop into affected eye every evening Ophthalm ic Once a day Active Physical Therapy evaluate and treat mechanical eval & tx of hands M19.041, M19.042 (arthritis of hands) 3 x/wk x for 30 Days August, Active PROCEDURES No Information RESULTS No Results REASON FOR VISIT new order MEDICAL (GENERAL) HISTORY Type Description Date [...] Notes Treatment Notes Treatm ent Clinical Notes Nov, Pain in left knee (ICD-10 - M25.562) PLAN OF TREATMENT Medication Medication Name Sig Start Date Stop Date Physical Therapy evaluate and treat m25.561, m25.652, pain in both knees for pain in both knees, M25.56 3 x/wk x Sep, Next Appt Details Provider Name:Ana Davenport, 2020-12-0 8 01:00:00 PM, [address] [facility] [place], [address], Insurance Providers Payer Name Payer Address Payer Phone Insured Name Patient Relati onship to Insured Coverage Start Date Coverage End Date MEDICARE BLUE PPO [address] BLUE [address]OSS [address] [facility] [id number] [place]
--- OUTSIDE RECORDS SUMMARY | 2021-02-06 09:33 | CCD ---
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 Her relationship counselor orders blood work every 6 months, and adds the hemoglobin A1c and TSH at my request, so she will continue having that done through her relationship counselor. 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 The [...] of Kenalog-40 (triamcinolone acetonide 40 mg/ml, Lot #[id number], Exp: 02/2022) and 4 mL of 1% lidocaine (Lot #[id number], Exp: 05/2024). 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 The [...] of Kenalog-40 (triamcinolone acetonide 40 mg/ml, Lot #[id number], Exp: 02/2022) and 4 mL of 1% lidocaine (Lot #[id number], Exp: 05/2024). The knee is cleaned and [...] reflux disease without esophagitis K21.9 Active confirmed 977924571 Problem Primary osteoarthritis, left hand M19.042 Active confirmed 089557939283840 ALLERGIES Allergen (clinical drug ingredient) Drug/Non Drug Allergy do cumented on EMR Reaction Allergy Type Onset Date Status sulfamethoxazole / trimethoprim Bactrim([facility] [place] Code:[address]- 01) itching, swelling, fever Drug Allergy Active Penicillin V-potassium itching, swelling, fever Drug Aller gy Active ENCOUNTERS from 1942 to 2021-02-03 Encounter Location Date Provider Diagnosis [facility] [address] [place] [address] 11 Jan, 2021 Ana Davenport IMMUNIZATIONS Vaccine Route Administration Date [...] Provider Name:Ana Davenport, 2020-12-0 8 01:00:00 PM, [address], , [place], [phone], Insurance Providers Payer Name Payer Address Payer Phone Insured Name Patient Relati onship to Insured Coverage Start Date Coverage End Date MEDICARE BLUE PPO [address] [facility] BLUE [address] [id number] MARY ANN RIVERA
--- OUTSIDE RECORDS SUMMARY | 2021-02-06 09:33 | CCD ---
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 Her conditioner tender orders blood work every 6 months, and adds the hemoglobin A1c and TSH at my request, so she will continue having that done through her conditioner tender. 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 The [...] of Kenalog-40 (triamcinolone acetonide 40 mg/ml, Lot #[id number], Exp: 02/2022) and 4 mL of 1% lidocaine (Lot #[id number], Exp: 05/2024). 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 The [...] of Kenalog-40 (triamcinolone acetonide 40 mg/ml, Lot #[id number], Exp: 02/2022) and 4 mL of 1% lidocaine (Lot #[id number], Exp: 05/2024). The knee is cleaned and [...] reflux disease without esophagitis K21.9 Active confirmed 612597314 Problem Primary osteoarthritis, left hand M19.042 Active confirmed 532299272527241 ALLERGIES Allergen (clinical drug ingredient) Drug/Non Drug Allergy do cumented on EMR Reaction Allergy Type Onset Date Status sulfamethoxazole / trimethoprim Bactrim([facility] Code:[address]- 01) itching, swelling, fever Drug Allergy Active Penicillin V-potassium itching, swelling, fever Drug Aller gy Active ENCOUNTERS from 1942 to 2020-12-24 Encounter Location Date Provider Diagnosis [place] [address] [facility] [phone] [place] [address] Nov, Ana Davenport IMMUNIZATIONS Vaccine Route Administration [...] Information RESULTS No Results REASON FOR VISIT continuation of PT script MEDICAL (GENERAL) HISTORY Type Description Date Medical [...] M25.56 3 x/wk x 29 Sep, 2017 Next Appt Details Provider Name:Ana Davenport, 2020-12-0 8 01:00:00 PM, [address], , [place], [phone], Insurance Providers Payer Name Payer Address Payer Phone Insured Name Patient Relati onship to Insured Coverage Start Date Coverage End Date MEDICARE BLUE PPO [address] [facility] [address] [address] MARY ANN RIVERA
--- OUTSIDE RECORDS SUMMARY | 2021-02-06 09:33 | CCD | Continuity of Care Document ---
Author Author Mary Ann BURGOS Organization Unknown Address [address] [place] [address] Phone [phone] Problems Active Problems Provider Date Endometrial hyperplasia [...] N PART A. Cervical, Endocervical, ThinPrep Pap (Band Head Saw Operator) CYTOLOGY HX-------- Other Information: Post-menopausal Previous Normal [...] tissue may in fact be diagnostic and passenger service representative of the endometrium. Studies have documented [...] pcs. Procedures Date Code Description Status 01/01/2021 20585 Office/Outpatient Established Lo w MDM 20-29 Min Completed 01/01/2021 72239 Endometrial Biopsy W/O Cervical Dilation Completed 12/29/2017 [id number] Mammogram Completed 01/09/2015 [id number] Mammogram Completed 02/25/2011 [id number] Bone Mineral Density Test Comple scot 10/19/2005 [id number] Bone Mineral Density Test Comple scot [employer] Description No Information Available Encounters Type Date Location Provider Dx Diagnosis Office Visit 01/01/2021 10:30a [facility] popcorn candy maker Carla Burgos MD N9 5.0 Postmenopausal bleeding Z91.89 Oth personal risk factors, n ot elsewhere classified Z01.411 Encntr for specialty trimmer exam (general ) (routine) w abnormal findings [...] 12:00 pm - Carla Burgos MD at [facility] popcorn candy maker * 02/13/2021 10:30 am - Carla Burgos MD at [facility] * 01/07/2022 10:45 am - Carla Burgos MD at [facility] popcorn candy maker Functional Status Description No Information Available Mental Status Description No Information Available Referrals Description No Information Available
--- OUTSIDE RECORDS SUMMARY | 2021-02-06 09:33 | CCD ---
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 Her convention services manager orders blood work every 6 months, and adds the hemoglobin A1c and TSH at my request, so she will continue having that done through her convention services manager. 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 The [...] of Kenalog-40 (triamcinolone acetonide 40 mg/ml, Lot #[id number], Exp: 02/2022) and 4 mL of 1% lidocaine (Lot #[id number], Exp: 05/2024). 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 The [...] of Kenalog-40 (triamcinolone acetonide 40 mg/ml, Lot #[id number], Exp: 02/2022) and 4 mL of 1% lidocaine (Lot #[id number], Exp: 05/2024). The knee is cleaned and [...] reflux disease without esophagitis K21.9 Active confirmed 619122653 Problem Primary osteoarthritis, left hand M19.042 Active confirmed 845448496147904 ALLERGIES Allergen (clinical drug ingredient) Drug/Non Drug Allergy do cumented on EMR Reaction Allergy Type Onset Date Status sulfamethoxazole / trimethoprim Bactrim([facility] Code:[address]- 01) itching, swelling, fever Drug Allergy Active Penicillin V-potassium itching, swelling, fever Drug Aller gy Active ENCOUNTERS from 1942 to 2021-01-21 Encounter Location Date Provider Diagnosis [facility] [address] [place] [address] 27 Dec, 2020 Anaher Davenport Pain in left knee M25.562 IMMUNIZATIONS [...] Twice a day as needed Mar, Active amLODIPine Besylate 2.5 MG 1 tablet Orally Once a day for 90 day s Cardilogy Mar, Active Potassium Chloride 10 MEQ 1 tablet [...] 3 x/wk x 29 Sep, 2017 Active Vitamin C 500 MG as directed [...] RESULTS No Results REASON FOR VISIT new PT script MEDICAL (GENERAL) HISTORY Type Description [...] Notes Treatment Notes Treatm ent Clinical Notes Dec, Pain in left knee (ICD-10 - M25.562) PLAN OF TREATMENT Medication Medication Name Sig Start Date Stop Date Physical Therapy evaluate and treat m25.561, m25.652, pain in both knees for pain in both knees, M25.56 3 x/wk x Sep, Next Appt Details Provider Name:Ana Davenport, 2020-12-0 8 01:00:00 PM[facility] [address] [facility] [place], [address], Insurance Providers Payer Name Payer Address Payer Phone Insured Name Patient Relati onship to Insured Coverage Start Date Coverage End Date MEDICARE BLUE PPO [address] [employer] [address]UE [address] [id number] MARY ANN RIVERA
--- OUTSIDE RECORDS SUMMARY | 2021-02-06 09:34 | CCD ---
Author Author [facility] Organization [facility] Address Unknown Phone Unavailable Care Team Providers Care Aerial Crop Duster Name Role Phone Groat, C Heidi Unavailable Groat, C Heidi Unavailable Groat, C Heidi Unavailable Groat, C Heidi Unavailable Groat, C Heidi Unavailable Groat, C Heidi Unavailable Groat, C Heidi Unavailable Groat, C Heidi Unavailable Groat, C Heidi Unavailable Groat, C Heidi Unavailable Groat, C Heidi Unavailable Groat, C Heidi Unavailable Groat, C Heidi Unavailable Groat, C Heidi Unavailable Groat, C Heidi Unavailable Groat, C Heidi Unavailable Sam HSIEH MD Unavailable Unavailable Sam HSIEH MD Unavailable Unavailable FULEIHAN, Sam MORTENSEN MD Unavailable Unavailable FULEIHAN, Sam MORTENSEN MD Unavailable Unavailable FULEIHAN, Sam MORTENSEN MD Unavailable Unavailable FULEIHAN, Sam MORTENSEN MD Unavailable Unavailable FULEIHAN, Sam MORTENSEN MD Unavailable Unavailable FULEIHAN, Sam MORTENSEN MD Unavailable Unavailable FULEIHAN, Sam MORTENSEN MD Unavailable Unavailable FULEIHAN, Sam MORTENSEN MD Unavailable Unavailable FULEIHAN, Sam MORTENSEN MD Unavailable Unavailable FULEIHAN, Sam MORTENSEN MD Unavailable Unavailable FULEIHAN, Sam MORTENSEN MD Unavailable Unavailable FULEIHAN, Sam MORTENSEN MD Unavailable Unavailable FULEIHAN, Sam MORTENSEN MD Unavailable Unavailable FULEIHAN, Sam MORTENSEN MD Unavailable Unavailable FULEIHAN, Sam MORTENSEN MD Unavailable Unavailable FULEIHAN, Sam MORTENSEN MD Unavailable Unavailable FULEIHAN, Sam MORTENSEN MD Unavailable Unavailable FULEIHAN, Sam MORTENSEN MD Unavailable Unavailable FULEIHAN, Sam MORTENSEN MD Unavailable Unavailable FULEIHAN, Sam MORTENSEN MD Unavailable Unavailable FULEIHAN, Sam MORTENSEN MD Unavailable Unavailable FULEIHAN, Sam MORTENSEN MD Unavailable Unavailable FULEIHAN, Sam MORTENSEN MD Unavailable Unavailable FULEIHAN, Sam MORTENSEN MD Unavailable Unavailable FULEIHAN, Sam MORTENSEN MD Unavailable Unavailable FULEIHAN, Sam MORTENSEN MD Unavailable Unavailable FULEIHAN, Sam MORTENSEN MD Unavailable Unavailable FULEIHAN, Sam MORTENSEN MD Unavailable Unavailable FULEIHAN, Sam MORTENSEN MD Unavailable Unavailable FULEIHAN, Sam MORTENSEN MD Unavailable Unavailable FULEIHAN, Sam MORTENSEN MD Unavailable Unavailable FULEIHAN, Sam MORTENSEN MD Unavailable Unavailable FULEIHAN, Sam MORTENSEN MD Unavailable Unavailable FULEIHAN, Sam MORTENSEN MD Unavailable Unavailable FULEIHAN, Sam MORTENSEN MD Unavailable Unavailable FULEIHAN, Sam MORTENSEN MD Unavailable Unavailable FULEIHAN, Sam MORTENSEN MD Unavailable Unavailable FULEIHAN, Sam MORTENSEN MD Unavailable Unavailable FULEIHAN, Sam MORTENSEN MD Unavailable Unavailable FULEIHAN, Sam MORTENSEN MD Unavailable Unavailable FULEIHAN, Sam MORTENSEN MD Unavailable Unavailable FULEIHAN, Sam MORTENSEN MD Unavailable Unavailable FULEIHAN, Sam MORTENSEN MD Unavailable Unavailable FULEIHAN, Sam MORTENSEN MD Unavailable Unavailable FULEIHAN, Sam MORTENSEN MD Unavailable Unavailable FULEIHAN, Sam MORTENSEN MD Unavailable Unavailable FULEIHAN, Sam MORTENSEN MD Unavailable Unavailable FULEIHAN, Sam MORTENSEN MD Unavailable Unavailable FULEIHAN, Sam MORTENSEN MD Unavailable Unavailable FULEIHAN, Sam MORTENSEN MD Unavailable Unavailable FULEIHAN, Sam MORTENSEN MD Unavailable Unavailable FULEIHAN, Sam MORTENSEN MD Unavailable Unavailable FULEIHAN, Sam MORTENSEN MD Unavailable Unavailable FULEIHAN, Sam MORTENSEN MD Unavailable Unavailable FULEIHAN, Sam MORTENSEN MD Unavailable Unavailable FULEIHAN, Sam MORTENSEN MD Unavailable Unavailable FULEIHAN, Sam MORTENSEN MD Unavailable Unavailable FULEIHAN, Sam MORTENSEN MD Unavailable Unavailable FULEIHAN, Sam MORTENSEN MD Unavailable Unavailable FULEIHAN, Sam MORTENSEN MD Unavailable Unavailable FULEIHAN, Sam MORTENSEN MD Unavailable Unavailable FULEIHAN, Sam MORTENSEN MD Unavailable Unavailable FULEIHAN, Sam MORTENSEN MD Unavailable Unavailable FULEIHAN, Sam MORTENSEN MD Unavailable Unavailable FULEIHAN, Sam MORTENSEN MD Unavailable Unavailable FULEIHAN, Sam MORTENSEN MD Unavailable Unavailable FULEIHAN, Sam MORTENSEN MD Unavailable Unavailable FULEIHAN, Sam MORTENSEN MD Unavailable Unavailable FULEIHAN, Sam MORTENSEN MD Unavailable Unavailable FULEIHAN, Sam MORTENSEN MD Unavailable Unavailable FULEIHAN, Sam MORTENSEN MD Unavailable Unavailable FULEIHAN, Sam MORTENSEN MD Unavailable Unavailable FULEIHAN, Sam MORTENSEN MD Unavailable Unavailable FULEIHAN, Sam MORTENSEN MD Unavailable Unavailable FULEIHAN, Sam MORTENSEN MD Unavailable Unavailable FULEIHAN, Sam MORTENSEN MD Unavailable Unavailable FULEIHAN, Sam MORTENSEN MD Unavailable Unavailable FULEIHAN, Sam MORTENSEN MD Unavailable Unavailable FULEIHAN, Sam MORTENSEN MD Unavailable Unavailable FULEIHAN, Sam MORTENSEN MD Unavailable Unavailable FULEIHAN, Sam MORTENSEN MD Unavailable Unavailable FULEIHAN, Sam MORTENSEN MD Unavailable Unavailable FULEIHAN, Sam MORTENSEN MD Unavailable Unavailable FULEIHAN, Sam MORTENSEN MD Unavailable Unavailable FULEIHAN, Sam MORTENSEN MD Unavailable Unavailable FULEIHAN, Sam MORTENSEN MD Unavailable Unavailable FULEIHAN, Sam MORTENSEN MD Unavailable Unavailable BURGOS, Marta BANKS MD Unavailable Unavailable BURGOS, Marta BANKS MD Unavailable Unavailable BURGOS, Marta BANKS MD Unavailable Unavailable BURGOS, Marta BANKS MD Unavailable Unavailable BURGOS, Marta BANKS MD Unavailable Unavailable BURGOS, Marta BANKS MD Unavailable Unavailable BURGOS, Marta BANKS MD Unavailable Unavailable BURGOS, Marta BANKS MD Unavailable Unavailable BURGOS, Marta BANKS MD Unavailable Unavailable BURGOS, Marta BANKS MD Unavailable Unavailable BURGOS, Marta BANKS MD Unavailable Unavailable BURGOS, Marta BANKS MD Unavailable Unavailable BURGOS, Marta BANKS MD Unavailable Unavailable BURGOS, Marta BANKS MD Unavailable Unavailable BURGOS, L DARREN CHAND Unavailable Unavailable BURGOS, L DARREN CHAND Unavailable Unavailable BURGOS, L DARREN CHAND Unavailable Unavailable BURGOS, L DARREN CHAND Unavailable Unavailable BURGOS, L DARREN CHAND Unavailable Unavailable BURGOS, L DARREN CHAND Unavailable Unavailable BURGOS, L DARREN CHAND Unavailable Unavailable BURGOS, L DARREN CHAND Unavailable Unavailable BURGOS, L DARREN CHAND Unavailable Unavailable BURGOS, L DARREN CHAND Unavailable Unavailable BURGOS, L DARREN CHAND Unavailable Unavailable BURGOS, L DARREN CHAND Unavailable Unavailable BURGOS, L DARREN CHAND Unavailable Unavailable BURGOS, L DARREN CHAND Unavailable Unavailable BURGOS, L DARREN CHAND Unavailable Unavailable BURGOS, L DARREN CHAND Unavailable Unavailable BURGOS, L DARREN CHAND Unavailable Unavailable BURGOS, L DARREN CHAND Unavailable Unavailable BURGOS, L DARREN CHAND Unavailable Unavailable BURGOS, L DARREN CHAND Unavailable Unavailable BURGOS, L DARREN CHAND Unavailable Unavailable BURGOS, L DARREN CHAND Unavailable Unavailable BURGOS, L DARREN CHAND Unavailable Unavailable BURGOS, L DARREN CHAND Unavailable Unavailable BURGOS, L DARREN CHAND Unavailable Unavailable BURGOS, L DARREN CHAND Unavailable Unavailable BURGOS, L DARREN CHAND Unavailable Unavailable BURGOS, L DARREN CHAND Unavailable Unavailable BURGOS, L DARREN CHAND Unavailable Unavailable BURGOS, L DARREN CHAND Unavailable Unavailable BURGOS, L DARREN CHAND Unavailable Unavailable Issac, Ana PA Unavailable Unavailable Issac, Ana PA Unavailable Unavailable Issac, Ana PA Unavailable Unavailable Issac, Ana PA Unavailable Unavailable Issac, Ana PA Unavailable Unavailable Issac, Ana PA Unavailable Unavailable Issac, Ana PA Unavailable Unavailable Issac, Ana PA Unavailable Unavailable Issac, Ana PA Unavailable Unavailable Issac, Ana PA Unavailable Unavailable Issac, Ana PA Unavailable Unavailable Issac, Ana PA Unavailable Unavailable Issac, Ana PA Unavailable Unavailable Issac, Ana PA Unavailable Unavailable Issac, Ana PA Unavailable Unavailable Issac, Ana PA Unavailable Unavailable Issac, Ana PA Unavailable Unavailable Issac, Ana PA Unavailable Unavailable Issac, Ana PA Unavailable Unavailable Issac, Ana PA Unavailable Unavailable Issac, Ana PA Unavailable Unavailable Issac, Ana PA Unavailable Unavailable Issac, Ana PA Unavailable Unavailable Issac, Ana PA Unavailable Unavailable Issac, Ana PA Unavailable Unavailable Issac, Ana PA Unavailable Unavailable Issac, Ana PA Unavailable Unavailable Issac, Ana PA Unavailable Unavailable Issac, Ana PA Unavailable Unavailable Issac, Ana PA Unavailable Unavailable Issac, Ana PA Unavailable Unavailable Issac, Ana PA Unavailable Unavailable Issac, Ana PA Unavailable Unavailable Issac, Ana PA Unavailable Unavailable Issac, Ana PA Unavailable Unavailable Issac, Ana PA Unavailable Unavailable Issac, Ana PA Unavailable Unavailable Issac, Ana PA Unavailable Unavailable Issac, Ana PA Unavailable Unavailable Issac, Ana PA Unavailable Unavailable Issac, Ana PA Unavailable Unavailable Issac, Ana PA Unavailable Unavailable Issac, Ana PA Unavailable Unavailable Issac, Ana PA Unavailable Unavailable Issac, Ana PA Unavailable Unavailable Issac, Ana PA Unavailable Unavailable Issac, Ana PA Unavailable Unavailable Issac, Ana PA Unavailable Unavailable Issac, Ana PA Unavailable Unavailable Issac, Ana PA Unavailable Unavailable Issac, Ana PA Unavailable Unavailable Issac, Ana PA Unavailable Unavailable Issac, Ana PA Unavailable Unavailable Issac, Ana PA Unavailable Unavailable Issac, Ana PA Unavailable Unavailable Issac, Ana PA Unavailable Unavailable Issac, Ana PA Unavailable Unavailable Issac, Ana PA Unavailable Unavailable Issac, Ana PA Unavailable Unavailable Issac, Ana PA Unavailable Unavailable Issac, Ana PA Unavailable Unavailable Issac, Ana PA Unavailable Unavailable DEVINCENTIS III, F MARY MD Unavailable Unavailabl e DEVINCENTIS III, F MARY MD Unavailable Unavailabl e DEVINCENTIS III, F MARY Unavailable Unavailabl e DEVINCENTIS III, F MARY Unavailable Unavailabl e DEVINCENTIS III, F MARY Unavailable Unavailabl e DEVINCENTIS III, F MARY Unavailable Unavailabl e DEVINCENTIS III, F MARY Unavailable Unavailabl e DEVINCENTIS III, F MARY Unavailable Unavailabl e DEVINCENTIS III, F MARY Unavailable Unavailabl e DEVINCENTIS III, F MARY Unavailable Unavailabl e DEVINCENTIS III, F MARY Unavailable Unavailabl e DEVINCENTIS III, F MARY Unavailable Unavailabl e DEVINCENTIS III, F MARY Unavailable Unavailabl e DEVINCENTIS III, F MARY Unavailable Unavailabl e DEVINCENTIS III, F MARY Unavailable Unavailabl e DEVINCENTIS III, F MARY Unavailable Unavailabl e DEVINCENTIS III, F MARY Unavailable Unavailabl e DEVINCENTIS III, F MARY MD Unavailable Unavailabl e DEVINCENTIS III, F MARY MD Unavailable Unavailabl e DEVINCENTIS III, F MARY MD Unavailable Unavailabl e DEVINCENTIS III, F MARY MD Unavailable Unavailabl e DEVINCENTIS III, F MARY MD Unavailable Unavailabl e DEVINCENTIS III, F MARY MD Unavailable Unavailabl e DEVINCENTIS III, F MARY MD Unavailable Unavailabl e DEVINCENTIS III, F MARY MD Unavailable Unavailabl e DEVINCENTIS III, F MARY MD Unavailable Unavailabl e DEVINCENTIS III, F MARY MD Unavailable Unavailabl e DEVINCENTIS III, F MARY MD Unavailable Unavailabl e DEVINCENTIS III, F MARY MD Unavailable Unavailabl e DEVINCENTIS III, F MARY MD Unavailable Unavailabl e DEVINCENTIS III, F MARY MD Unavailable Unavailabl e DEVINCENTIS III, F MARY MD Unavailable Unavailabl e DEVINCENTIS III, F MARY MD Unavailable Unavailabl e DEVINCENTIS III, F MARY MD Unavailable Unavailabl e DEVINCENTIS III, F MARY MD Unavailable Unavailabl e DEVINCENTIS III, F MARY MD Unavailable Unavailabl e DEVINCENTIS III, F MARY MD Unavailable Unavailabl e DEVINCENTIS III, F MARY MD Unavailable Unavailabl e DEVINCENTIS III, F MARY MD Unavailable Unavailabl e DEVINCENTIS III, F MARY MD Unavailable Unavailabl e DEVINCENTIS III, F MARY MD Unavailable Unavailabl e DEVINCENTIS III, F MARY MD Unavailable Unavailabl e DEVINCENTIS III, F MARY MD Unavailable Unavailabl e DEVINCENTIS III, F MARY MD Unavailable Unavailabl e DEVINCENTIS III, F MARY MD Unavailable Unavailabl e DEVINCENTIS III, F MARY MD Unavailable Unavailabl e DEVINCENTIS III, F MARY MD Unavailable Unavailabl e DEVINCENTIS III, F MARY MD Unavailable Unavailabl e DEVINCENTIS III, F MARY MD Unavailable Unavailabl e DEVINCENTIS III, F MARY MD Unavailable Unavailabl e DEVINCENTIS III, F MARY MD Unavailable Unavailabl e DEVINCENTIS III, F MARY MD Unavailable Unavailabl e DEVINCENTIS III, F MARY MD Unavailable Unavailabl e DEVINCENTIS III, F MARY MD Unavailable Unavailabl e DEVINCENTIS III, F MARY MD Unavailable Unavailabl e DEVINCENTIS III, F MARY MD Unavailable Unavailabl e DEVINCENTIS III, F MARY CHAND Unavailable Unavailabl e Rory, J Michelle BOILER MAKER Unavailable Unavailable Rory, J Michelle BOILER MAKER Unavailable Unavailable Rory, J Michelle BOILER MAKER Unavailable Unavailable Rory, J Michelle BOILER MAKER Unavailable Unavailable Rory, J Michelle BOILER MAKER Unavailable Unavailable Rory, J Michelle BOILER MAKER Unavailable Unavailable Rory, J Michelle BOILER MAKER Unavailable Unavailable Rory, J Michelle BOILER MAKER Unavailable Unavailable Rory, J Michelle BOILER MAKER Unavailable Unavailable Rory, J Michelle BOILER MAKER Unavailable Unavailable Rory, J Michelle BOILER MAKER Unavailable Unavailable Rory, J Michelle BOILER MAKER Unavailable Unavailable Rory, J Michelle BOILER MAKER Unavailable Unavailable Rory, J Michelle BOILER MAKER Unavailable Unavailable Rory, J Michelle BOILER MAKER Unavailable Unavailable Rory, J Michelle BOILER MAKER Unavailable Unavailable Rory, J Michelle BOILER MAKER Unavailable Unavailable Rory, J Michelle BOILER MAKER Unavailable Unavailable Rory, J Michelle BOILER MAKER Unavailable Unavailable Rory, J Michelle BOILER MAKER Unavailable Unavailable Rory, J Michelle BOILER MAKER Unavailable Unavailable Rory, J Michelle BOILER MAKER Unavailable Unavailable Rory, J Michelle BOILER MAKER Unavailable Unavailable Rory, J Michelle BOILER MAKER Unavailable Unavailable Rory, J Michelle BOILER MAKER Unavailable Unavailable Rory, J Michelle BOILER MAKER Unavailable Unavailable Rory, J Michelle BOILER MAKER Unavailable Unavailable Rory, J Michelle BOILER MAKER Unavailable Unavailable Rory, J Michelle BOILER MAKER Unavailable Unavailable Rory, J Michelle BOILER MAKER Unavailable Unavailable Rory, J Michelle BOILER MAKER Unavailable Unavailable Rory, J Michelle BOILER MAKER Unavailable Unavailable Rory, J Michelle BOILER MAKER Unavailable Unavailable Rory, J Michelle BOILER MAKER Unavailable Unavailable Rory, J Michelle BOILER MAKER Unavailable Unavailable Rory, J Michelle BOILER MAKER Unavailable Unavailable Re-disclosure Warning The records that you are about to access may contain information from federally-assisted alcohol or drug abuse programs. If such information is present, then the following federally mandated warning applies: This information has been disclosed to you from records protected by federal confidentiality rules (42 CFR part 2). The federal rules prohibit you from making any further disclosure of this information unless further disclosure is expressly permitted by the written consent of the person to whom it pertains or as otherwise permitted by 42 CFR part 2. A general authorization for the release of medical or other information is NOT sufficient for this purpose. The Federal rules restrict any use of the information to criminally investigate or prosecute any alcohol or drug abuse patient.The records that you are about to access may contain highly sensitive health information, the redisclosure of which is protected by Article 27-F of the [facility] Public Health law. If you continue you may have access to information: Regarding HIV / AIDS; Provided by facilities licensed or operated by the [facility] Office of Mental Health; or Provided by the [facility] Office for People With Developmental Disabilities. If such information is present, then the following [facility] mandated warning applies: This information has been disclosed to you from confidential records which are protected by state law. State law prohibits you from making any further disclosure of this information without the specific written consent of the person to whom it pertains, or as otherwise permitted by law. Any unauthorized further disclosure in violation of state law may result in a fine or intermediate sentence or both. A general authorization for the release of medical or other information is NOT sufficient authorization for further disc losure. 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) Encounters Encounter Providers Location Date Indications Data Source(s ) [place] [address] [facility] [address] 02/03/2021 12:00:00 AM EDT eCW1 ([facility]) Outpatient Attender: Michelle LOPEZ ttender: BALBINA HSIEH MDReferrer: Michelle Valadez NP [email or web address] 01/28/2021 12:00:00 AM EDT - 01/28/2021 09:49:01 AM EDT [facility] Unknown [address] [facility] [address] 01/28/2021 12:00:00 AM EDT eCW1 ([facility]) Outpatient Attender: DARREN Lew rocket engine tester 09:45:00 AM EDT MEDENT (Caesar Lew 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) [place] [address] [facility] [address] 01/21/2021 12:00:00 AM EDT eCW1 ([facility]) [place] [address] [facility] [address] 01/20/2021 12:00:00 AM EDT eCW1 ([facility]) Outpatient Attender: DARREN BURGOS MD Maynard Woman rocket engine tester 11/2020 10:30:00 AM EDT MEDENT ([facility] 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) [place] [address] [facility] [address] 12/23/2020 12:00:00 AM EDT eCW1 [facility] [place] [address] [facility] [address] 12/20/2020 12:00:00 AM EDT eCW1 [facility] [place] [address] [facility] [address] 12/20/2020 12:00:00 AM EDT eCW1 ([facility]) [place] [address] [facility] [address] 11/14/2020 12:00:00 AM EDT eCW1 ([facility]) [place] [address] [facility] [address] 11/07/2020 12:00:00 AM EDT eCW1 ([facility]) [place] [address] [facility] [address] 10/30/2020 12:00:00 AM EDT eCW1 ([facility]) [place] [address] [facility] [address] 10/23/2020 12:00:00 AM EDT eCW1 ([facility]) Outpatient 10/21/2020 12:16:48 PM EDT [facility] ([facility]) [place] [address] [facility] [address] 10/21/2020 12:00:00 AM EDT eCW1 ([facility]) Outpatient Referrer: Michelle Valadez NP [email or web address] 09/24 12:00:00 AM EDT [facility] Unknown [address] [facility] [address] 10/08/2020 12:00:00 AM EDT [facility] [place] [address] [facility] [address] 10/08/2020 12:00:00 AM EDT eCW1 ([facility]) [place] [address] [facility] [address] 10/08/2020 12:00:00 AM EDT eCW1 ([facility]) Unknown [address] [facility] [address] 10/08/2020 12:00:00 AM EDT eCW1 ([facility]) [place] [address] [facility] [address] [address] 10/02/2020 12:00:00 AM EDT eCW1 ([facility]) Outpatient Attender: Michelle Valadez NPReferrer: Antoinette Valadez NP SJMiguel [email or web address] 09/27/2020 09:49:13 AM EDT - 09/27/2020 10:45:16 AM EDT [facility] Outpatient Attender: Michelle Valadez NPReferrer: Michelle garcia NP SJMiguel [email or web address].[email or web address] 09/27/2020 09:47:21 AM EDT - 09/27/2020 11:20:50 AM EDT [facility] [place] [address] [facility] [address] 09/25/2020 12:00:00 AM EDT eCW1 ([facility]) [place] [address] [facility] [address] 09/09/2020 12:00:00 AM EDT eCW1 ([facility]) [place] [address] [facility] [address] 09/09/2020 12:00:00 AM EDT eCW1 ([facility]) Office Visit Attender: MARY STACY III [facility] 08/26/2020 12:30:00 PM EDT MED[facility] ([facility] [place] [address] [facility] [address] 08/21/2020 12:00:00 AM EDT [facility]CW[facility] [place] [address] [facility] [address] 08/12/2020 12:00:00 AM EDT eCW1 ([facility]) Unknown [address] [facility] [address] 06/03/2020 12:00:00 AM EST eCW1 [facility]) Unknown [address] [facility] [address] 05/07/2020 12:00:00 AM EST [facility]CW1 [facility]) [place] [address] [facility] [address] 05/07/2020 12:00:00 AM EST eCW1 ([facility]) [place] [address] [facility] [address] 04/16/2020 12:00:00 AM EST eCW1 ([facility]) [place] [address] [facility] [place] [address] 04/10/2020 12:00:00 AM EST eCW1 ([facility]) Outpatient [id number] 04/01/2020 12:00:00 AM EST [facility] Unknown [address] [facility] [address] 04/01/2020 12:00:00 AM EST eCW1 ([facility]) Outpatient Attender: Michelle Valadez NPAttender: [email or web address] [email or web address] 03/29/2020 12:00:00 AM EST - 03/29/2020 10:52:41 AM EST [facility] Outpatient Attender: Heidi Ramirezrer: Ana SEBASTIAN 03/22/2020 09:23:38 AM EST [facility] Office Visit Attender: MARY STACY III [facility] 03/20/2020 11:30:00 AM EST MEDENT ([facility] ) Recurring Patient Referrer: Ana SEBASTIAN 03/18/2020 10:33:11 AM EST [facility] Recurring Patient Referrer: Ana SEBASTIAN 03/18/2020 10:32:57 AM EST [facility] [place] [address] [facility] [address] 03/11/2020 12:00:00 AM EST eCW1 ([facility]) Unknown [address] [facility] [address] 03/11/2020 12:00:00 AM EST eCW1 ([facility]) Recurring Patient Referrer: Ana SEBASTIAN 03/07/2020 03:09:25 PM EST [facility] Outpatient [address] [facility] [place] [address] 03/05/2020 12:00:00 AM EST eCW1 ([facility]) Unknown [address] [facility] [address] 02/13/2020 12:00:00 AM EDT eCW1 ([facility]) Outpatient Attender: DARREN Maynard Woman rocket engine tester 07/2019 10:00:00 AM EDT MEDENT ([facility] 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 COVID-19 VACCINE, MRNA-1273, LNP-S (MODERNA)/PF 06/06/2020 1 2:00:00 AM EST completed [facility] COVID-19 VACCINE, MRNA-1273, LNP-S (MODERNA)/PF 05/09/2020 1 2:00:00 AM EST completed [facility] COVID-19 VACCINE Moderna 05/09/2020 12:00:00 AM EST completed [facility] Vaccine Series Complete: NOThis Data was Submitted to [facility] Via [facility]. IIV3. This is one of two codes replacing CVX 15, which is being retired. 01/23/2020 03:54:00 PM EDT completed eCW1 ([facility]) IIV3. This is one of two codes replacing CVX 15, which is being retired. 01/23/2020 03:54:00 PM EDT completed eCW1 ([facility]) IIV3. This is one of two codes replacing CVX 15, which is being retired. 01/23/2020 03:54:00 PM EDT completed eCW1 ([facility]) IIV3. This is one of two codes replacing CVX 15, which is being retired. 01/23/2020 03:54:00 PM EDT completed eCW1 ([facility]) IIV3. This is one of two codes replacing CVX 15, which is being retired. 01/23/2020 03:54:00 PM EDT completed eCW1 ([facility]) IIV3. This is one of two codes replacing CVX 15, which is being retired. 01/23/2020 03:54:00 PM EDT completed eCW1 ([facility]) IIV3. This is one of two codes replacing CVX 15, which is being retired. 01/23/2020 03:54:00 PM EDT completed eCW1 ([facility]) IIV3. This is one of two codes replacing CVX 15, which is being retired. 01/23/2020 03:54:00 PM EDT completed eCW1 ([facility]) IIV3. This is one of two codes replacing CVX 15, which is being retired. 01/23/2020 03:54:00 PM EDT completed eCW1 ([facility]) IIV3. This is one of two codes replacing CVX 15, which is being retired. 01/23/2020 03:54:00 PM EDT completed eCW1 ([facility]) IIV3. This is one of two codes replacing CVX 15, which is being retired. 01/23/2020 03:54:00 PM EDT completed eCW1 ([facility]) IIV3. This is one of two codes replacing CVX 15, which is being retired. 01/23/2020 03:54:00 PM EDT completed eCW1 ([facility]) IIV3. This is one of two codes replacing CVX 15, which is being retired. 01/23/2020 03:54:00 PM EDT completed eCW1 ([facility]) IIV3. This is one of two codes replacing CVX 15, which is being retired. 01/23/2020 03:54:00 PM EDT completed eCW1 ([facility]) IIV3. This is one of two codes replacing CVX 15, which is being retired. 01/23/2020 03:54:00 PM EDT completed eCW1 ([facility]) IIV3. This is one of two codes replacing CVX 15, which is being retired. 01/23/2020 03:54:00 PM EDT completed eCW1 ([facility]) IIV3. This is one of two codes replacing CVX 15, which is being retired. 01/23/2020 03:54:00 PM EDT completed eCW1 ([facility]) IIV3. This is one of two codes replacing CVX 15, which is being retired. 01/23/2020 03:54:00 PM EDT completed eCW1 ([facility]) IIV3. This is one of two codes replacing CVX 15, which is being retired. 01/23/2020 03:54:00 PM EDT completed eCW1 ([facility]) IIV3. This is one of two codes replacing CVX 15, which is being retired. 01/23/2020 03:54:00 PM EDT completed eCW1 ([facility]) IIV3. This is one of two codes replacing CVX 15, which is being retired. 01/23/2020 03:54:00 PM EDT completed eCW1 ([facility]) IIV3. This is one of two codes replacing CVX 15, which is being retired. 01/23/2020 03:54:00 PM EDT completed eCW1 ([facility]) IIV3. This is one of two codes replacing CVX 15, which is being retired. 01/23/2020 03:54:00 PM EDT completed eCW1 ([facility]) IIV3. This is one of two codes replacing CVX 15, which is being retired. 01/23/2020 03:54:00 PM EDT completed eCW1 ([facility]) IIV3. This is one of two codes replacing CVX 15, which is being retired. 01/23/2020 03:54:00 PM EDT completed eCW1 ([facility]) IIV3. This is one of two codes replacing CVX 15, which is being retired. 01/23/2020 03:54:00 PM EDT completed eCW1 ([facility]) IIV3. This is one of two codes replacing CVX 15, which is being retired. 01/23/2020 03:54:00 PM EDT completed eCW1 ([facility]) IIV3. This is one of two codes replacing CVX 15, which is being retired. 01/23/2020 03:54:00 PM EDT completed eCW1 ([facility]) IIV3. This is one of two codes replacing CVX 15, which is being retired. 01/23/2020 03:54:00 PM EDT completed eCW1 ([facility]) IIV3. This is one of two codes replacing CVX 15, which is being retired. 01/23/2020 03:54:00 PM EDT completed eCW1 ([facility]) IIV3. This is one of two codes replacing CVX 15, which is being retired. 01/23/2020 03:54:00 PM EDT completed eCW1 ([facility]) IIV3. This is one of two codes replacing CVX 15, which is being retired. 01/23/2020 03:54:00 PM EDT completed eCW1 ([facility]) INFLUENZA VACCINE QUADRIVALENT 2019-21 (65 YR UP)/MF59 C.1/PF 01/23/2020 12:00:00 AM EDT completed [facility] Medications Medication Brand Name Start Date Product Form Dose Route Admi nistrative Instructions Pharmacy Instructions Status Indications Reaction Description Data Source(s) 2.5 mg 01/31/2021 12:00:00 AM EDT tablet 180 TAKE TWO TABLETS BY MOUTH EVERY DAY TAKE TWO TABLETS BY MOUTH EVERY DAY SOLD: 02/02/2021 [facility] 60 mcg (15 mcg x 4)/0.5 mL 01/30/2021 12:00:00 AM EDT syringe 0 DIRECTED DIRECTED SOLD: 01/30/2021 [facility] tramadol hydrochloride 50 MG Oral Tablet traMADol HCl 50 MG traMADol HCl 50 MG 01/28/2021 12:00:00 AM EDT 1.0 {tablet} active traMADol HCl 50 MG eCW1 ([facility]) Potassium Chloride 10 MEQ Extended Release Oral Tablet POTAS SIUM CHLORIDE 01/28/2021 12:00:00 AM EDT tablet extended release 90 TAKE ONE TABLET BY MOUTH EVERY DAY TAKE ONE TABLET BY MOUTH EVERY DAY SOLD: 01/30/2021 [facility] tramadol hydrochloride 50 MG Oral Tablet traMADol HCl 50 MG traMADol HCl 50 MG 01/28/2021 12:00:00 AM EDT 1.0 {tablet} active traMADol HCl 50 MG eCW1 ([facility]ly [facility]) tramadol hydrochloride 50 MG Oral Tablet traMADol HCl 50 MG traMADol HCl 50 MG 01/28/2021 12:00:00 AM EDT 1.0 {tablet} active traMADol HCl 50 MG eCW1 ([facility]ly [facility]) Potassium Chloride 10 MEQ Extended Relea se Oral Tablet potassium chloride (K- DUR) 10 MEQ tablet potassium chloride (K-DUR) 10 MEQ tablet 01/28/2021 12 :00:00 AM EDT 10 meq Oral active Take 1 tablet (10 mEq total) by mouth daily [facility] Simvastatin 20 MG Oral Tablet simvastatin (ZOCOR) 20 M G tablet simvastatin (ZOCOR) 20 MG tablet 01/28/2021 12:00:00 AM EDT 20 mg Oral active Take 1 tablet (20 mg total) by mouth daily [facility] Amlodipine 2.5 MG Oral Tablet amLODIPine (NORVASC) 2.5 MG tablet amLODIPine (NORVASC) 2.5 MG tablet 01/28/2021 12:00:00 AM EDT 2.5 mg Oral active Take 1 tablet (2.5 mg total) by mouth daily [facility] Atenolol 50 MG Oral Tablet atenolol (TENORMIN) 50 MG t ablet atenolol (TENORMIN) 50 MG tablet 01/28/2021 12:00:00 AM EDT 50 mg Oral activ e Take 1 tablet (50 mg total) by mouth daily [facility] Indapamide 2.5 MG Oral Tablet indapamide (LOZOL) 2.5 M G tablet indapamide (LOZOL) 2.5 MG tablet 01/28/2021 12:00:00 AM EDT 5 mg Oral active Take 2 tablets (5 mg total) by mouth daily [facility] Losartan Potassium 100 MG Oral Tablet losartan (COZAAR ) 100 MG tablet losartan (COZAAR) 100 MG tablet 01/28/2021 12:00:00 AM EDT 100 mg Oral active Take 1 tablet (100 mg total) by mouth daily [facility] 50 mg 01/28/2021 12:00:00 AM EDT tablet 120 TAKE ONE TABLET BY MOUTH EVERY 6 HOURS NEEDED MAXIMUM DAILY DOSE = 4 TAKE ONE TABLET BY MOUTH EVERY 6 HOURS A S NEEDED MAXIMUM DAILY DOSE = 4 SOLD: 01/30/2021 [facility] 2.5 mg 11/07/2020 12:00:00 AM EDT tablet 180 TAKE ONE TABLET BY MOUTH TWICE A DAY TAKE ONE TABLET BY MOUTH TWICE A DAY SOLD: 11/08/2020 [facility] Potassium Chloride 10 MEQ Extended Release Oral Tablet POTAS SIUM CHLORIDE 11/07/2020 12:00:00 AM EDT tablet extended release 90 TAKE ONE TABLET BY MOUTH EVERY DAY TAKE ONE TABLET BY MOUTH EVERY DAY SOLD: 11/08/2020 [facility] 500 mg 10/09/2020 12:00:00 AM EDT tablet 60 TAKE ONE TABLET BY MOUTH TWICE A DAY NEEDED WITH FOOD OR MILK TAKE ONE TABLET BY MOUTH TWICE A DAY NEEDED WITH FOOD OR MILK SOLD: 10/09/2020 [facility] Naproxen 500 MG Oral Tablet Naproxen 500 MG 10/08/2020 12:00:00 AM EDT active Naproxen 500 MG eCW1 [facility] Naproxen 500 MG Oral Tablet Naproxen 500 MG 10/08/2020 12:00:00 AM EDT active Naproxen 500 MG eCW1 ([facility]) Naproxen 500 MG Oral Tablet Naproxen 500 MG 10/08/2020 12:00:00 AM EDT active Naproxen 500 MG eCW1 ([facility]) Naproxen 500 MG Oral Tablet Naproxen 500 MG 10/08/2020 12:00:00 AM EDT active Naproxen 500 MG eCW1 ([facility]) Naproxen 500 MG Oral Tablet Naproxen 500 MG 10/08/2020 12:00:00 AM EDT active Naproxen 500 MG eCW1 ([facility]) Naproxen 500 MG Oral Tablet Naproxen 500 MG 10/08/2020 12:00:00 AM EDT active Naproxen 500 MG eCW1 ([facility]) Naproxen 500 MG Oral Tablet Naproxen 500 MG 10/08/2020 12:00:00 AM EDT active Naproxen 500 MG eCW1 ([facility]) Naproxen 500 MG Oral Tablet Naproxen 500 MG 10/08/2020 12:00:00 AM EDT active Naproxen 500 MG eCW1 ([facility]) Naproxen 500 MG Oral Tablet Naproxen 500 MG 10/08/2020 12:00:00 AM EDT active Naproxen 500 MG eCW1 ([facility]) Indapamide 2.5 MG Oral Tablet indapamide (LOZOL) 2.5 M G tablet indapamide (LOZOL) 2.5 MG tablet 09/27/2020 12:00:00 AM EDT 5 mg Oral aborted Take 2 tablets (5 mg total) by mouth daily [facility] 15 mg 09/10/2020 12:00:00 AM EDT tablet 90 TAKE ONE TABLET BY MOUTH EVERY DAY TAKE ONE TABLET BY MOUTH EVERY DAY SOLD: 09/12/2020 [facility] 150 mcg 09/10/2020 12:00:00 AM EDT tablet 90 TAKE ONE TABLET BY MOUTH EVERY MORNING ON AN EMPTY STOMACH TAKE ONE TABLET BY MOUTH EVERY MORNING O N AN EMPTY STOMACH SOLD: 09/12/2020 [facility] 100 mg 09/10/2020 12:00:00 AM EDT tablet 90 TAKE ONE TABLET BY MOUTH EVERY DAY TAKE ONE TABLET BY MOUTH EVERY DAY SOLD: 09/12/2020 [facility] 15 mg 09/10/2020 12:00:00 AM EDT tablet 90 TAKE ONE TABLET BY MOUTH EVERY DAY TAKE ONE TABLET BY MOUTH EVERY DAY SOLD: 12/11/2020 [facility] 150 mcg 09/10/2020 12:00:00 AM EDT tablet 90 TAKE ONE TABLET BY MOUTH EVERY MORNING ON AN EMPTY STOMACH TAKE ONE TABLET BY MOUTH EVERY MORNING O N AN EMPTY STOMACH SOLD: 12/11/2020 [facility] 100 mg 09/10/2020 12:00:00 AM EDT tablet 90 TAKE ONE TABLET BY MOUTH EVERY DAY TAKE ONE TABLET BY MOUTH EVERY DAY SOLD: 12/11/2020 [facility] Physical Therapy evaluate and treat UNK 09/09/2020 12:00:00 AM EDT active Physical Therapy evaluate and tr eat eCW1 ([facility]) Physical Therapy evaluate and treat UNK 09/09/2020 12:00:00 AM EDT active Physical Therapy evaluate and tr eat eCW1 ([facility]) Physical Therapy evaluate and treat UNK 09/09/2020 12:00:00 AM EDT active Physical Therapy evaluate and tr eat eCW1 ([facility]) Physical Therapy evaluate and treat UNK 09/09/2020 12:00:00 AM EDT active Physical Therapy evaluate and tr eat eCW1 ([facility]) Physical Therapy evaluate and treat UNK 09/09/2020 12:00:00 AM EDT active Physical Therapy evaluate and tr eat eCW1 ([facility]) Physical Therapy evaluate and treat UNK 09/09/2020 12:00:00 AM EDT active Physical Therapy evaluate and tr eat eCW1 ([facility]) Physical Therapy evaluate and treat UNK 09/09/2020 12:00:00 AM EDT active Physical Therapy evaluate and tr eat eCW1 ([facility]) Physical Therapy evaluate and treat UNK 09/09/2020 12:00:00 AM EDT active Physical Therapy evaluate and tr eat eCW1 ([facility]) Physical Therapy evaluate and treat UNK 09/09/2020 12:00:00 AM EDT active Physical Therapy evaluate and tr eat eCW1 ([facility]) Physical Therapy evaluate and treat UNK 09/09/2020 12:00:00 AM EDT active Physical Therapy evaluate and tr eat eCW1 ([facility]) Physical Therapy evaluate and treat UNK 09/09/2020 12:00:00 AM EDT active Physical Therapy evaluate and tr eat eCW1 ([facility]) Physical Therapy evaluate and treat UNK 09/09/2020 12:00:00 AM EDT active Physical Therapy evaluate and tr eat eCW1 ([facility]) Physical Therapy evaluate and treat UNK 09/09/2020 12:00:00 AM EDT active Physical Therapy evaluate and tr eat eCW1 ([facility]) Physical Therapy evaluate and treat UNK 09/09/2020 12:00:00 AM EDT active Physical Therapy evaluate and tr eat eCW1 ([facility]) Physical Therapy evaluate and treat UNK 09/09/2020 12:00:00 AM EDT active Physical Therapy evaluate and tr eat eCW1 ([facility]) Physical Therapy evaluate and treat UNK 09/09/2020 12:00:00 AM EDT active Physical Therapy evaluate and tr eat eCW1 ([facility]) Physical Therapy evaluate and treat UNK 09/09/2020 12:00:00 AM EDT active Physical Therapy evaluate and tr eat eCW1 ([facility]) Physical Therapy evaluate and treat UNK 09/09/2020 12:00:00 AM EDT active Physical Therapy evaluate and tr eat eCW1 ([facility]) Physical Therapy evaluate and treat UNK 09/09/2020 12:00:00 AM EDT active Physical Therapy evaluate and tr eat eCW1 ([facility]) Physical Therapy evaluate and treat UNK 09/09/2020 12:00:00 AM EDT active Physical Therapy evaluate and tr eat eCW1 ([facility]) 2 mg 06/03/2020 12:00:00 AM EST tablet 30 TAKE ONE TABLET BY MOUTH TWICE A DAY NEEDED FOR TRAVEL ANXIETY MAXIMUM DAILY DOSE = 2 TAKE ONE TABLET BY MOUTH TWICE A DAY NEEDED FOR TRAVEL ANXIETY MAXIMUM DAILY DOSE = 2 SOLD: 06/06/2020 [facility] Potassium Chloride 10 MEQ Extended Release Oral Tablet POTAS SIUM CHLORIDE 05/03/2020 12:00:00 AM EST tablet extended release 90 TAKE ONE TABLET BY MOUTH EVERY DAY TAKE ONE TABLET BY MOUTH EVERY DAY SOLD: 08/05/2020 [facility] Potassium Chloride 10 MEQ Extended Release Oral Tablet POTAS SIUM CHLORIDE 05/03/2020 12:00:00 AM EST tablet extended release 90 TAKE ONE TABLET BY MOUTH EVERY DAY TAKE ONE TABLET BY MOUTH EVERY DAY SOLD: 05/04/2020 [facility] 15 mg 04/02/2020 12:00:00 AM EST tablet 90 TAKE ONE TABLET BY MOUTH EVERY DAY TAKE ONE TABLET BY MOUTH EVERY DAY SOLD: 06/07/2020 [facility] 15 mg 04/02/2020 12:00:00 AM EST tablet 90 TAKE ONE TABLET BY MOUTH EVERY DAY TAKE ONE TABLET BY MOUTH EVERY DAY SOLD: 04/05/2020 [facility] 150 mcg 03/29/2020 12:00:00 AM EST tablet 90 TAKE ONE TABLET BY MOUTH EVERY MORNING ON AN EMPTY STOMACH TAKE ONE TABLET BY MOUTH EVERY MORNING O N AN EMPTY STOMACH SOLD: 06/06/2020 [facility] 150 mcg 03/29/2020 12:00:00 AM EST tablet 90 TAKE ONE TABLET BY MOUTH EVERY MORNING ON AN EMPTY STOMACH TAKE ONE TABLET BY MOUTH EVERY MORNING O N AN EMPTY STOMACH SOLD: 03/31/2020 [facility] 2.5 mg 03/29/2020 12:00:00 AM EST tablet 90 TAKE ONE TABLET BY MOUTH EVERY DAY TAKE ONE TABLET BY MOUTH EVERY DAY SOLD: 09/12/2020 [facility] Amlodipine 2.5 MG Oral Tablet amLODIPine (NORVASC) 2.5 MG tablet amLODIPine (NORVASC) 2.5 MG tablet 03/29/2020 12:00:00 AM EST 2.5 mg Oral aborted Take 1 tablet (2.5 mg total) by mouth daily [facility] 50 mg 03/29/2020 12:00:00 AM EST tablet 90 TAKE ONE TABLET BY MOUTH EVERY DAY TAKE ONE TABLET BY MOUTH EVERY DAY SOLD: 12/11/2020 [facility] Atenolol 50 MG Oral Tablet atenolol (TENORMIN) 50 MG t ablet atenolol (TENORMIN) 50 MG tablet 03/29/2020 12:00:00 AM EST 50 mg Oral abort ed Take 1 tablet (50 mg total) by mouth daily [facility] 2.5 mg 03/29/2020 12:00:00 AM EST tablet 90 TAKE ONE TABLET BY MOUTH EVERY DAY TAKE ONE TABLET BY MOUTH EVERY DAY SOLD: 12/11/2020 [facility] 2.5 mg 03/29/2020 12:00:00 AM EST tablet 90 TAKE ONE TABLET BY MOUTH EVERY DAY TAKE ONE TABLET BY MOUTH EVERY DAY SOLD: 06/06/2020 [facility] Atenolol 50 MG Oral Tablet ATENOLOL 03/29/2020 12:00:00 AM EST tablet 90 TAKE ONE TABLET BY MOUTH EVERY DAY TAKE ONE TABLET BY MOUTH EVERY DAY SOLD: 03/31/2020 [facility] 50 mg 03/29/2020 12:00:00 AM EST tablet 90 TAKE ONE TABLET BY MOUTH EVERY DAY TAKE ONE TABLET BY MOUTH EVERY DAY SOLD: 09/12/2020 [facility] 2.5 mg 03/29/2020 12:00:00 AM EST tablet 90 TAKE ONE TABLET BY MOUTH EVERY DAY TAKE ONE TABLET BY MOUTH EVERY DAY SOLD: 03/31/2020 [facility] 50 mg 03/29/2020 12:00:00 AM EST tablet 90 TAKE ONE TABLET BY MOUTH EVERY DAY TAKE ONE TABLET BY MOUTH EVERY DAY SOLD: 06/06/2020 [facility] 12 % 03/26/2020 12:00:00 AM EST lotion 400 APPLY TOPICALLY FROM THE NECK DOWN AFTER SHOWER APPLY TOPICALLY FROM THE NECK DOWN AFTER SHOWER SOLD: 03/28/2020 [facility] 100 mg 03/08/2020 12:00:00 AM EST capsule 30 TAKE ONE CAPSULE BY MOUTH EVERY DAY WITH FOOD TAKE ONE CAPSULE BY MOUTH EVERY DAY WITH FOOD SOLD: 03/08/2020 [facility] 50 mg 03/06/2020 12:00:00 AM EST tablet 120 TAKE ONE TABLET BY MOUTH EVERY 6 HOURS NEEDED MAXIMUM DAILY DOSE = 4 TAKE ONE TABLET BY MOUTH EVERY 6 HOURS A S NEEDED MAXIMUM DAILY DOSE = 4 SOLD: 03/08/2020 [facility] 20 mg 03/06/2020 12:00:00 AM EST tablet 90 TAKE ONE TABLET BY MOUTH EVERY DAY TAKE ONE TABLET BY MOUTH EVERY DAY SOLD: 12/11/2020 [facility] 20 mg 03/06/2020 12:00:00 AM EST tablet 180 TAKE ONE TABLET BY MOUTH TWICE A DAY TAKE ONE TABLET BY MOUTH TWICE A DAY SOLD: 03/08/2020 [facility] 20 mg 03/06/2020 12:00:00 AM EST tablet 90 TAKE ONE TABLET BY MOUTH EVERY DAY TAKE ONE TABLET BY MOUTH EVERY DAY SOLD: 09/12/2020 [facility] 100 mg 03/06/2020 12:00:00 AM EST tablet 90 TAKE ONE TABLET BY MOUTH EVERY DAY TAKE ONE TABLET BY MOUTH EVERY DAY SOLD: 03/08/2020 [facility] 100 mg 03/06/2020 12:00:00 AM EST tablet 90 TAKE ONE TABLET BY MOUTH EVERY DAY TAKE ONE TABLET BY MOUTH EVERY DAY SOLD: 06/06/2020 [facility] 20 mg 03/06/2020 12:00:00 AM EST tablet 90 TAKE ONE TABLET BY MOUTH EVERY DAY TAKE ONE TABLET BY MOUTH EVERY DAY SOLD: 03/08/2020 [facility] 20 mg 03/06/2020 12:00:00 AM EST tablet 90 TAKE ONE TABLET BY MOUTH EVERY DAY TAKE ONE TABLET BY MOUTH EVERY DAY SOLD: 06/06/2020 [facility] Famotidine 20 MG Oral Tablet FAMOTIDINE 03/06/2020 12:00:00 AM EST tab let 180 TAKE ONE TABLET BY MOUTH TWICE A DAY TAKE ONE TABLET BY MOUTH TWICE A DAY SOLD: 06/06/2020 [facility] celecoxib 100 MG Oral Capsule [Celebrex] CeleBREX 100 MG [facility] eBREX 100 MG 03/05/2020 12:00:00 AM EST 1.0 {capsule_with_food} active CeleBREX 100 MG eCW1 ([facility]) celecoxib 100 MG Oral Capsule [Celebrex] Celebrex 100 MG [facility] ebrex 100 MG 03/05/2020 12:00:00 AM EST 1.0 {capsule_with_food} active Celebrex 100 MG eCW1 ([facility]) celecoxib 100 MG Oral Capsule [Celebrex] CeleBREX 100 MG [facility] eBREX 100 MG 03/05/2020 12:00:00 AM EST 1.0 {capsule_with_food} active CeleBREX 100 MG eCW1 ([facility]) celecoxib 100 MG Oral Capsule [Celebrex] Celebrex 100 MG [facility] ebrex 100 MG 03/05/2020 12:00:00 AM EST 1.0 {capsule_with_food} active Celebrex 100 MG eCW1 ([facility]) celecoxib 100 MG Oral Capsule [Celebrex] Celebrex 100 MG [facility] ebrex 100 MG 03/05/2020 12:00:00 AM EST 1.0 {capsule_with_food} active Celebrex 100 MG eCW1 ([facility]) celecoxib 100 MG Oral Capsule [Celebrex] Celebrex 100 MG [facility] ebrex 100 MG 03/05/2020 12:00:00 AM EST 1.0 {capsule_with_food} active Celebrex 100 MG eCW1 ([facility]) celecoxib 100 MG Oral Capsule [Celebrex] Celebrex 100 MG [facility] ebrex 100 MG 03/05/2020 12:00:00 AM EST 1.0 {capsule_with_food} active Celebrex 100 MG eCW1 ([facility]) celecoxib 100 MG Oral Capsule [Celebrex] Celebrex 100 MG [facility] ebrex 100 MG 03/05/2020 12:00:00 AM EST 1.0 {capsule_with_food} active Celebrex 100 MG eCW1 ([facility]) celecoxib 100 MG Oral Capsule [Celebrex] CeleBREX 100 MG [facility] eBREX 100 MG 03/05/2020 12:00:00 AM EST 1.0 {capsule_with_food} active CeleBREX 100 MG eCW1 ([facility]) celecoxib 100 MG Oral Capsule [Celebrex] Celebrex 100 MG [facility] ebrex 100 MG 03/05/2020 12:00:00 AM EST 1.0 {capsule_with_food} active Celebrex 100 MG eCW1 ([facility]) celecoxib 100 MG Oral Capsule [Celebrex] CeleBREX 100 MG [facility] eBREX 100 MG 03/05/2020 12:00:00 AM EST 1.0 {capsule_with_food} active CeleBREX 100 MG eCW1 ([facility]) celecoxib 100 MG Oral Capsule [Celebrex] Celebrex 100 MG [facility] ebrex 100 MG 03/05/2020 12:00:00 AM EST 1.0 {capsule_with_food} active Celebrex 100 MG eCW1 ([facility]) celecoxib 100 MG Oral Capsule [Celebrex] Celebrex 100 MG [facility] ebrex 100 MG 03/05/2020 12:00:00 AM EST 1.0 {capsule_with_food} active Celebrex 100 MG eCW1 ([facility]) celecoxib 100 MG Oral Capsule [Celebrex] Celebrex 100 MG [facility] ebrex 100 MG 03/05/2020 12:00:00 AM EST 1.0 {capsule_with_food} active Celebrex 100 MG eCW1 ([facility]) celecoxib 100 MG Oral Capsule [Celebrex] CeleBREX 100 MG [facility] eBREX 100 MG 03/05/2020 12:00:00 AM EST 1.0 {capsule_with_food} active CeleBREX 100 MG eCW1 ([facility]) celecoxib 100 MG Oral Capsule [Celebrex] Celebrex 100 MG [facility] ebrex 100 MG 03/05/2020 12:00:00 AM EST 1.0 {capsule_with_food} active Celebrex 100 MG eCW1 ([facility]) celecoxib 100 MG Oral Capsule [Celebrex] Celebrex 100 MG [facility] ebrex 100 MG 03/05/2020 12:00:00 AM EST 1.0 {capsule_with_food} active Celebrex 100 MG eCW1 ([facility]) celecoxib 100 MG Oral Capsule [Celebrex] Celebrex 100 MG [facility] ebrex 100 MG 03/05/2020 12:00:00 AM EST 1.0 {capsule_with_food} active Celebrex 100 MG eCW1 ([facility]) celecoxib 100 MG Oral Capsule [Celebrex] CeleBREX 100 MG [facility] eBREX 100 MG 03/05/2020 12:00:00 AM EST 1.0 {capsule_with_food} active CeleBREX 100 MG eCW1 ([facility]) celecoxib 100 MG Oral Capsule [Celebrex] CeleBREX 100 MG [facility] eBREX 100 MG 03/05/2020 12:00:00 AM EST 1.0 {capsule_with_food} active CeleBREX 100 MG eCW1 ([facility]) celecoxib 100 MG Oral Capsule [Celebrex] Celebrex 100 MG [facility] ebrex 100 MG 03/05/2020 12:00:00 AM EST 1.0 {capsule_with_food} active Celebrex 100 MG eCW1 ([facility]) celecoxib 100 MG Oral Capsule [Celebrex] CeleBREX 100 MG [facility] eBREX 100 MG 03/05/2020 12:00:00 AM EST 1.0 {capsule_with_food} active CeleBREX 100 MG eCW1 ([facility]) celecoxib 100 MG Oral Capsule [Celebrex] CeleBREX 100 MG [facility] eBREX 100 MG 03/05/2020 12:00:00 AM EST 1.0 {capsule_with_food} active CeleBREX 100 MG eCW1 ([facility]) 15 mg 12/29/2019 12:00:00 AM EDT tablet 90 TAKE ONE TABLET BY MOUTH EVERY DAY TAKE ONE TABLET BY MOUTH EVERY DAY SOLD: 12/31/2019 [facility] 20 mg 12/07/2019 12:00:00 AM EDT tablet 180 TAKE ONE TABLET BY MOUTH TWICE A DAY TAKE ONE TABLET BY MOUTH TWICE A DAY SOLD: 12/08/2019 [facility] 2.5 mg 10/26/2019 12:00:00 AM EDT tablet 180 TAKE TWO TABLETS BY MOUTH EVERY DAY TAKE TWO TABLETS BY MOUTH EVERY DAY SOLD: 08/05/2020 [facility] 2.5 mg 10/26/2019 12:00:00 AM EDT tablet 180 TAKE TWO TABLETS BY MOUTH EVERY DAY TAKE TWO TABLETS BY MOUTH EVERY DAY SOLD: 05/04/2020 [facility] 2.5 mg 10/26/2019 12:00:00 AM EDT tablet 180 TAKE TWO TABLETS BY MOUTH EVERY DAY TAKE TWO TABLETS BY MOUTH EVERY DAY SOLD: 01/19/2020 [facility] Indapamide 2.5 MG Oral Tablet indapamide (LOZOL) 2.5 M G tablet indapamide (LOZOL) 2.5 MG tablet 10/23/2019 12:00:00 AM EDT 5 mg Oral aborted Take 2 tablets (5 mg total) by mouth daily [facility] 150 mcg 10/19/2019 12:00:00 AM EDT tablet 90 TAKE ONE TABLET BY MOUTH EVERY MORNING ON AN EMPTY STOMACH TAKE ONE TABLET BY MOUTH EVERY MORNING O N AN EMPTY STOMACH SOLD: 01/19/2020 [facility] Potassium Chloride 10 MEQ Extended Release Oral Tablet POTAS SIUM CHLORIDE 10/19/2019 12:00:00 AM EDT tablet extended release 90 TAKE ONE TABLET BY MOUTH EVERY DAY TAKE ONE TABLET BY MOUTH EVERY DAY SOLD: 01/23/2020 [facility] 100 mg 03/22/2019 12:00:00 AM EST tablet 90 TAKE ONE TABLET BY MOUTH EVERY DAY TAKE ONE TABLET BY MOUTH EVERY DAY SOLD: 12/08/2019 [facility] 20 mg 03/22/2019 12:00:00 AM EST tablet 90 TAKE ONE TABLET BY MOUTH EVERY DAY TAKE ONE TABLET BY MOUTH EVERY DAY SOLD: 12/08/2019 [facility] Atenolol 50 MG Oral Tablet ATENOLOL 03/22/2019 12:00:00 AM EST tablet 90 TAKE ONE TABLET BY MOUTH EVERY DAY TAKE ONE TABLET BY MOUTH EVERY DAY SOLD: 01/19/2020 [facility] 2.5 mg 03/22/2019 12:00:00 AM EST tablet 90 TAKE ONE TABLET BY MOUTH EVERY DAY TAKE ONE TABLET BY MOUTH EVERY DAY SOLD: 01/19/2020 [facility] Atenolol 50 MG Oral Tablet atenolol (TENORMIN) 50 MG t ablet atenolol (TENORMIN) 50 MG tablet 03/17/2019 12:00:00 AM EST 50 mg Oral abort ed Take 1 tablet (50 mg total) by mouth daily [facility] Amlodipine 2.5 MG Oral Tablet amLODIPine (NORVASC) 2.5 MG tablet amLODIPine (NORVASC) 2.5 MG tablet 03/17/2019 12:00:00 AM EST 2.5 mg Oral aborted Take 1 tablet (2.5 mg total) by mouth daily [facility] Simvastatin 20 MG Oral Tablet simvastatin (ZOCOR) 20 M G tablet simvastatin (ZOCOR) 20 MG tablet 03/17/2019 12:00:00 AM EST 20 mg Oral aborted Take 1 tablet (20 mg total) by mouth daily [facility] Losartan Potassium 100 MG Oral Tablet losartan (COZAAR ) 100 MG tablet losartan (COZAAR) 100 MG tablet 03/17/2019 12:00:00 AM EST 100 mg Oral aborted Take 1 tablet (100 mg total) by mouth daily [facility] Prednisone 10 MG Oral Tablet predniSONE (DELTASONE) 10 MG tablet predniSONE (DELTASONE) 10 MG tablet 01/16/2019 12:00:00 AM EDT aborted 4 EVERY MORNING FOR 3 DAYS TAKE THREE TABLETS BY MOUTH EVERY MORNING FOR 3 DAYS TAKE TWO TABLETS BY MOUTH EVERY MORNING FOR 3 DAYS TAKE O [facility] Potassium Chloride 10 MEQ Extended Relea se Oral Tablet potassium chloride (K- DUR) 10 MEQ tablet potassium chloride (K-DUR) 10 MEQ tablet 01/14/2019 12 :00:00 AM EDT 10 meq Oral aborted Take 10 mEq by m outh daily [facility] Aspirin 81 MG Delayed Release Oral Tablet aspirin (ASP IR-LOW) 81 MG EC tablet aspirin (ASPIR-LOW) 81 MG EC tablet 12/16/2015 12:00:00 AM EDT aborted ASPIR-LOW 81 MG TBEC [facility] Insurance Providers Payer name Policy type / Coverage type Policy ID Covered green party ID Covered green party's relationship to mac Policy Mac Plan Information [id number] Medicare Blue Ifacets Health Maintenance Organization (HMO) [id number] Self VY [id number] [facility] Medicare P [id number] SELF [id number] EXCELLUS BS MEDICARE [id number] Shirley [id number] EXCELLUS BCBS MEDICARE Medicare [id number] xxxxxxxxxxxx [id number] MEDICARE BLUE PPO EXCELLUS BC [id number] SP [id number] MEDICARE BLUE PPO EXCELLUS BC [id number] SP [id number] EX[employer] MEDICARE BLUE PPO G [id number] Self [id number] [employer] BCBS MEDICARE [id number] Shirley [id number] [facility] Medicare P [id number] SELF [id number] [facility] Medicare P [id number] SELF [id number] [facility] Medicare P [id number] SELF [id number] MEDICARE BLUE PPO EXCELLUS BC [id number] SP [id number] SELF PAY SELF PAY MEDICARE BLUE PPO EXCELLUS BC [id number] SP [id number] ANSI-Medicare Part B [id number] ANSI-Medicare Part B [id number] EXCELLUS BLUE CROSS BLUE SHIELD HEA [id number] ANSI-Medicare Part B [id number] MEDICARE BLUE PPO 306 [id number] SP [id number] EXCELLUS [facility] B [id number] S [id number] ANSI-Medicare Part B [id number] ANSI-Medicare Part B [id number] ANSI-Medicare Part B [id number] ANSI-Medicare Part B [id number] ANSI-Medicare Part B [id number] MEDICARE BLUE PPO 306 [id number] SP [id number] [employer] Medicare Blue Commercial [id number] Self [id number] ANSI-Medicare Part B [id number] ANSI-Medicare Part B [id number] ANSI-Medicare Part B [id number] ANSI-Medicare Part B [id number] ANSI-Medicare Part B [id number] ANS-Medicare Part B [id number] Problems, Conditions, and Diagnoses Code Display Name Description Problem Type Effective Dates Data Source(s) E78.2 Mixed hyperlipidemia Mixed hyperlipidemia Diagnosis 01/28/2021 09:17:27 AM EDT [facility] I34.0 Nonrheumatic mitral (valve) insufficienc y Nonrheumatic mitral (valve) insufficienc Diagnosis 01/28/2021 09:17:27 AM EDT [facility] R00.2 Palpitations Palpitations Diagnosis 01/28/2021 09:17:27 A M EDT [facility] I45.10 Unspecified right bundle-branch block Un specified right bundle-branch block Diagnosis 01/28/2021 09:17:27 AM EDT [facility] I10 Essential (primary) hypertension Essential (primary) h ypertension Diagnosis 01/28/2021 09:17:27 AM EDT [facility] I35.9 Nonrheumatic aortic valve disorder, unsp ecified Nonrheumatic aortic valve disorder, unsp Diagnosis 01/28/2021 09:17:27 AM EDT [facility] Z01.818 Encounter for other preprocedural examin ation Encounter for other preprocedural examin Diagnosis 01/28/2021 09:17:27 AM EDT [facility] R01.1 Cardiac murmur, unspecified Cardiac murmur, unspecifie d Diagnosis 09/27/2020 09:49:13 AM EDT [facility] Z79.899 Other [facility] (current) drug therapy 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 Diagnosis 09/27/2020 09:47:21 AM EDT [facility] E03.9 Hypothyroidism, unspecified Hypothyroidism, unspecifie d Diagnosis 09/27/2020 09:47:21 AM EDT [facility] E13.69 Other specified diabetes mellitus with o ther specified complication Other specified diabetes mellitus with o Diagnosis 09/27/2020 09:47:21 AM E DT [facility] 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 Occlusion and stenosis of bilateral zhang Diagnosis 09/27/2020 09:47:21 AM EDT [facility] E11.00 Type 2 diabetes mellitus wit h hyperosmolarity without nonketotic hyperglycemic-hyperosmolar coma (NKHHC) Type 2 diabetes mellitus with hyperosmol Diagnosis 03/29/2020 08:56:32 AM EST [facility] I34.0 Nonrheumatic mitral valve regurgitation Nonrheumatic mitral valve regurgitation [id number] 01/28/2021 12:00:00 AM EDT [facility] M17.12 [id number] Arthritis of left knee Problem 0 11/14/2020 12:00:00 AM EDT eCW1 ([facility]) R00.2 Palpitations Palpitations [id number] 09/27/2020 12:00:00 A M EDT [facility] M19.042 [id number] Primary osteoarthritis, left hand Prob fred 09/09/2020 12:00:00 AM EDT eCW1 (Formerly [facility]) M19.041 [id number] Primary osteoarthritis, right hand Pro blem 09/09/2020 12:00:00 AM EDT eCW1 (Formerly [facility]) Surgeries/Procedures Procedure Description Date Indications Data Source(s) ECG ROUTINE ECG W/LEAST 12 LDS W/I&R <td>POCT AMB EKG</td><td>Routine</td><td>01/28/2021 9:29 AM EDT</td><td> Preoperative clearance</td><td> </td> 01/28/2021 09:29:00 AM EDT Preoperative clearance [facility] Preoperative clearance OFFICE OUTPATIENT VISIT 25 MINUTES 01/22/2021 12:00:00 AM EDT [facility] (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) Endometrial Biopsy W/O Cervical Dilation 01/01/2021 12 :00:00 AM EDT [facility] ([facility] 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) OFFICE OUTPATIENT VISIT 15 MINUTES 01/01/2021 12:00:00 AM EDT [facility] ([facility] 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) Medication: 1% Lidocaine intradermal (xylocaine) 11/14 12:00:00 AM EDT eCW1 (Formerly [facility]) Medication: Kenalog 40mg/1mL IA (Triamcinolone) 2020 12:00:00 AM EDT eC1 ([facility]ly [facility]) Exam, Comprehensive, Est PT 08/26/2020 12:00:00 AM EDT MEDMAURO ([facility] ) Vis Field W/Med Diag;Ext,Markus Per 08/26/2020 12:00:00 AM EDT CHIDI ([facility]) Scan Computer Diag Imag W/Report Optic Nerve 1 12:00:00 AM EDT [facility] ([facility]) POCT AMB EKG <td>POCT AMB EKG</td><td>Nidhi lugo</td><td>03/29/2020 9:37 AM EST</td><td> RBBB (right bundle branch block)</td><td> </td> 03/29/2020 02:37:00 PM EST RBBB (right bundle branch block) [facility] RBBB (right bundle branch block) Exam, Comprehensive, Est PT 03/20/2020 12:00:00 AM EST [facility] ([facility]) Vis Field W/Med Diag;Ext,Markus Per 03/20/2020 12:00:00 AM EST [facility] ([facility]) Scan Computer Diag Imag W/Report Optic Nerve 0 12:00:00 AM EST [facility] ([facility]) THER ACTV DIR PT CONTACT BY PROVIDER EACH 15 MIN 12/19 12:00:00 AM EDT [facility] ([facility]) THER ACTV DIR PT CONTACT BY PROVIDER EACH 15 MIN 12/14 12:00:00 AM EDT [facility] ([facility]) THER ACTV DIR PT CONTACT BY PROVIDER EACH 15 MIN 12/10 12:00:00 AM EDT [facility] ([facility]) Results ID Date Data Source [id number] 01/01/2021 12:00:00 PM EDT [facility] ([facility] [facility] 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 Endometrial CLINICAL HX-------- N95.0 Postmenopausal bleeding [...] tissue may in fact be diagnostic and manufacturer representative of the endometrium. Studies have documented [...] is submitted entirely as (A1), multiple pcs. ID Date Data Source [id number] 01/01/2021 12:00:00 PM EDT [facility] ([facility] 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) Name Value Range Interpretation Code Description Data Shayla rce(s) Supporting Document(s) TP Reflex HPV ASCUS [facility] [place] 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) SPECIMEN PART------ A. Cervical, Endocervical, ThinPrep Pap (Decator Operator) CYTOLOGY HX-------- Other Information: Post-menopausal Previous Normal Pap: 12/29/19 FINAL DIAGNOSIS---- INTERPRETATION: Negative for Intraepithelial Lesion or Malignancy. SPECIMEN ADEQUACY:Satisfactory for evaluation. Endocervical/transformation zone component present. TP Reflex HPV ASCUS Laboratory test result [facility] ([facility] 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) ID Date Data Source [id number] 10/21/2020 12:49:00 PM EDT CH[facility]KER ([facility]) EXAM:Spine Lumbosacral Min 4V CLINICAL I NDICATION: LBP, NO TRAUMA, CHRONIC R/O DDD TECHNIQUE: Five x-rays of the lumbar spine were obtained. COMPARISON: None. FINDINGS: Grade 1 retrolisthesis of L1 on L2, L2 on L3, and L3 on L4.Moderate to severe intervertebral disc height loss throughout the entire lumbar spine with sparing at L4-L5.Minimal marginal osteophyte formation throughout the entire lumbar spine.Moderate multilevel facet arthropathy most pronounced at L3- L4 and L5-S1.Unremarkable soft tissues. IMPRESSION: 1. Moderate osteoarthritis without evidence of displaced fracture. Professional interpretation performed by [facility] . Name Value Range Interpretation Code Description Data Shayla rce(s) Supporting Document(s) ID Date Data Source [id number] 10/08/2020 10:57:17 AM EDT [facility] Name Value Range Interpretation Code Description Data [facility](s) Supporting Document(s) &PDF [facility] KSNADn6dTeEPLhAn49/XODdyBYLra9NwWRbvJOc9YNxiLEOhG3RsmFypJHRWRq8IQJAaP3sGYqcWCWSW lYX [file] ICAgICAgICAgICAgICAgICAgICAgICAgICAgICAgIC AgICAgICAgICAgICAgICAgICAgICAgICAgICAgICAgICAgICAgICAgDQogICAgICAgICAgICAgICAgIC AgICAgICAgICAgICAgICAgICAgICAgICAgICAgICAgICAgICAgICAgICAgICAgICAgICAgICAgICAgIC AgICAgICAgICAgICAgICAgICAgICAgDQogICAgICAg ICAgICAgICAgICAgICAgICAgICAgICAgICAgICAgICAgICAgICAgICAgICAgICAgICAgICAgICAgICAg ICAgICAgICAgICAgICAgICAgICAgICAgICAgICAgICAgDQogICAgICAgICAgICAgICAgICAgICAgICAg ICAgICAgICAgICAgICAgICAgICAgICAgICAgICAgIC AgICAgICAgICAgICAgICAgICAgICAgICAgICAgICAgICAgICAgICAgICAgDQogICAgICAgICAgICAgIC AgICAgICAgICAgICAgICAgICAgICAgICAgICAgICAgICAgICAgICAgICAgICAgICAgICAgICAgICAgIC AgICAgICAgICAgICAgICAgICAgICAgICAgDQogICAg ICAgICAgICAgICAgICAgICAgICAgICAgICAgICAgICAgICAgICAgICAgICAgICAgICAgICAgICAgICAg ICAgICAgICAgICAgICAgICAgICAgICAgICAgICAgICAgICAgDQogICAgICAgICAgICAgICAgICAgICAg ICAgICAgICAgICAgICAgICAgICAgICAgICAgICAgIC AgICAgICAgICAgICAgICAgICAgICAgICAgICAgICAgICAgICAgICAgICAgICAgDQogICAgICAgICAgIC AgICAgICAgICAgICAgICAgICAgICAgICAgICAgICAgICAgICAgICAgICAgICAgICAgICAgICAgICAgIC AgICAgICAgICAgICAgICAgICAgICAgICAgICAgDQog ICAgICAgICAgICAgICAgICAgICAgICAgICAgICAgICAgICAgICAgICAgICAgICAgICAgICAgICAgICAg ICAgICAgICAgICAgICAgICAgICAgICAgICAgICAgICAgICAgICAgDQogICAgICAgICAgICAgICAgICAg ICAgICAgICAgICAgICAgICAgICAgICAgICAgICAgIC BxDBHdSDBeRZQxAGHaOTAtXKPbDHAlNMAcUMBfZYKsVHZaYRGqUBMnAMDsTMAuUDNiRYx6H7dbCDQpHH UoEX8yDEc3Bx8+RLwRArRiQXS5mhPhiK7ULG8wp8RdIRjvGXAga4AwQTz6BX0KLXZuBHcnAB6WVAvcvm 2NQJCuFFJdtHKEc3fnRiIaFMB5ARMrVxiuSY4HQZAc M3crxpUkHJDsDTYFCOpzGFXFPTdjXYQANO7MRyEwG3DxoD46SJNUGr8+WJxlejMbSrpCOxE5JNJil5Vq JFb8AO8QBHBhSEnzVU5NJYEnlO4vXQyuZG2UGvSxSpCzETHLYeKwZ74gsUAzFZq5Y8LoXaBsOTDdPjwo ZXMgPDwvTmFtZXMgWyBdDQogID4+ID4+OUcyNC4BTT msqfYnGGRyBg7BCXVhHYL7MAKndSPuFpXrHWKAFHxjNL9IwLYfBLT9vE9kKMotGCYzIFCyI7kJZsApxA ieKP84qLyrnyNpwQCmCDz+Tg1HPR1hs7ByEJd5pcPwKWemPIT0GMuiIQQbLKEeBMOkPWT8CBX8QOOZJo WgLGUiGXIqKMuvWZFzBKGqga7KHSCsYLTxFRO5VXMc GRYuNAQoEHvsGTExENWlHiqgVGBuLGOzOJ5ZAdUeTZRqPNUcXHEeURCyBFZkjn9NYFAzCCMkRRd5VTUx GASsYKGqHKixQEXeOMK1XKr4KPKjSPKwFK8RSwYyJGJjDKl4CMSzMUOcILDlyr6UXIRfBQDdUVO3MEPi PCWrZNSoZBcdQZJbVFHpHKA0GLUuOJDyCM7LBaGfUD QbSAKdQCroVTCtKOHdsn7ZQPQtPQIjGUWsYYDaTTOaMTVqDZpiOZFfHUM3VhO2LQMyUKNaHB6DDrYxJD UuTGV5VBrfIEQuLLQeiu5OPIIsDFQhGFA2BXGkQHJzLWZlYXblDUAcYNG4JcBoQGJbHYImMN9AVhXeVX LiQTJ5GIxuLAGpDXGpnq5RYHQsEAKpBrxwInJzWOBv XYNkKOsuVXOqIMA0SIZ9TAKhFFYjRD2PSwXiOVPiYBieHRRpAARbICHjbq8OZLUzSYIbYDO9LOPoNKQh HWLfGBonEDJuYZH3HpGjRFYcXXBrBO6FHwOfQTZtDFu4XaotNJAvTEZrzt7QGSMbYJYgCAw9YHOiFLAl SZCtXHnyRAAjHJY4HTc6VUMnPMCyMQ6LWdLbAPKuNX w2VXgoMPTkNXNeow6KOUKyTDTvZDA9EoIgANAgQSPxORfoAUZrSXA8KXTyFIIuEHMwKI4EPxNjDUUbKl WpNbWaVLPmUYYxta5OCGBbIKRlEUD2HqRePVUeXUUiSEytLQPyPWEpUdw5GUWdAQDwEO9VYbVzEQYeQr FoLIKdZMYyJRCsbm1RVNFvAQOmFMB1TtHmAZXaZVZq KYkxDGMhTNBeSBLkICXmXHSbWF5CDsTwKJPvNrQdMVZhUQGpTPYcjt0WlXFhcNmiuc4LTXtBPe2BnKmi EXJ6RUesMm7xhYUcRJGvVHEUSg6EmjIeCVGyEBXOWKohUKAfUVn6PTVhPBXdVONoNHB1JrMoN7FuCsAw MeX4XCN1RXK9LbJ5JrQ7ZHGdTIZgPqS3WITvWRXdQu L5QyBpIJo1SbIfPxb+JS3kWKm+Xr8Wb7BtzlZ6oySkXTqoCeA5QK3IOLWPJ7BKQz== ID Date Data Source [id number] 09/27/2020 11:25:35 AM EDT [facility] Name Value Range Interpretation Code Description Data Shayla rce(s) Supporting Document(s) &PDF [facility] LATRCe6rEoYSLnJz27/KJNeuALKwd9CeTRteILl6DWqzXVOaN2VsjOjqRAANNp1VWPYfU8eDJiwXIFAL hdG [file] NgYNDeGsOABPTf/5+HxBV++f//procedure analyst+289bESNhW3N8NRy+AdC2UlUP/bBZJ0NRv+n//98sSPzJQHlpJL [file] AgICAgICAgICAgICAgICAgICAgICAgICAgICAgICAgICAgICAgICAgICAgICAgICAgICAgICAgICAgIC AgICAgICANCiAgICAgICAgICAgICAgICAgICAgICAg ICAgICAgICAgICAgICAgICAgICAgICAgICAgICAgICAgICAgICAgICAgICAgICAgICAgICAgICAgICAg ICAgICAgICAgICAgICAgICANCiAgICAgICAgICAgICAgICAgICAgICAgICAgICAgICAgICAgICAgICAg ICAgICAgICAgICAgICAgICAgICAgICAgICAgICAgIC AgICAgICAgICAgICAgICAgICAgICAgICAgICANCiAgICAgICAgICAgICAgICAgICAgICAgICAgICAgIC AgICAgICAgICAgICAgICAgICAgICAgICAgICAgICAgICAgICAgICAgICAgICAgICAgICAgICAgICAgIC AgICAgICAgICANCiAgICAgICAgICAgICAgICAgICAg ICAgICAgICAgICAgICAgICAgICAgICAgICAgICAgICAgICAgICAgICAgICAgICAgICAgICAgICAgICAg ICAgICAgICAgICAgICAgICAgICANCiAgICAgICAgICAgICAgICAgICAgICAgICAgICAgICAgICAgICAg ICAgICAgICAgICAgICAgICAgICAgICAgICAgICAgIC AgICAgICAgICAgICAgICAgICAgICAgICAgICAgICANCiAgICAgICAgICAgICAgICAgICAgICAgICAgIC AgICAgICAgICAgICAgICAgICAgICAgICAgICAgICAgICAgICAgICAgICAgICAgICAgICAgICAgICAgIC AgICAgICAgICAgICANCiAgICAgICAgICAgICAgICAg ICAgICAgICAgICAgICAgICAgICAgICAgICAgICAgICAgICAgICAgICAgICAgICAgICAgICAgICAgICAg ICAgICAgICAgICAgICAgICAgICAgICANCiAgICAgICAgICAgICAgICAgICAgICAgICAgICAgICAgICAg ICAgICAgICAgICAgICAgICAgICAgICAgICAgICAgIC AgICAgICAgICAgICAgICAgICAgICAgICAgICAgICAgICANCiAgICAgICAgICAgICAgICAgICAgICAgIC AgICAgICAgICAgICAgICAgICAgICAgICAgICAgICAgICAgICAgICAgICAgICAgICAgICAgICAgICAgIC AgICAgICAgICAgICAgICANCjw/aCCrV3ydnHBsxnI7 E7hnSh8BEx6XMU3wc7ArJNXjOMbwdvMjUuqMBhEtGCBlGmdMTzv6WQecQO0TjSSuZ2OpR1ArAVgcKJ0X NUHkBAPvgBOaABSmTWBiGvW6TSDqKAmpME1UkQFpODwdWRIbDIPeQrJaFUEgZQIaAVLeMF6IZUWjY237 jqSdGq8CXs3ETvKhQB7gby0DGnTyRPDnLqyEUds6DQ hhWE9FiAXjT2MjqUEae4oPVaVnV0NTKAPdJVOnCc9HQWYqHxOoZTVkBUfxDN5dYQZlTOGKlHwikrV5LC 9UEP3nbqQdGZ7EBsUjJz6hIq3CVsBiQ7DvW6LfHEWvNESIUCpbES4RQAGqRGZ9NZWeDUYdRBJBNmCrZ8 4yRM0RD5Leb53dTgS3GNSiRdAgAEjvOH84rEgcxwYv eRQbpDceBG4UZu2+GNtjftSdQgzCUktbQFTDCtRsZbMVIuXjBFHyOEDxZDAlDsQ7BgZcNl7IBLVeWKNx SGZmIyCvCDCkUQZnRYcxDGKlCBYePeA6NWCoILNaTO9AQwDoWXFbQmJ2QcZxOPVoDAWbdj5MEJKxPIGn GTM0ZJIrCFBpFCTaHMsbPHMkPYFaUIO4DLRbWIEjIX 1YBxKyHQNiVXN1VRScDGSoIHTwwj8CQZFeKXRsOyE5CRFqYEXiQZExBDytKGGpDCN7ZeYoIIJvUMHqSB 8KKiIsWNPnTBw9PWnkWBYkLEDyte1GTDDuALYgBVf4YhXzVYDkVAVsUCpwIMDfYDRkTHYsTCKoHZLzZB 5QOmThDCHjHLQmLCesHWXrXBOxxr3PSQOgEORbAEQv KrQpNUKpOXOyBLxhTJWgGCNjDZyjYIKjROYyXK9HApHaBAGtDQQtXQUyVLWdIYXcev3DZTOiIYGsGuY4 CRDeHRWuZRVpISzmOGQbYWZ3PJL1ENPtNMRgMJ3SFvIjEYCsZTd1LBDiMEErMMDboc3VOYBuKVAaVkp5 ZzPrYGYaZLNgZCkmVBGiAML4VqD6YFBaRBVzKK0UCs XsYWGiJLjoYKDiNWCqZIPbsl2JMKGqOYHmZMI7NDBgIFTtOBUiWHosTZFkUHK4ERwfIPItMUPuWS1OIu AeHKDiOLi8ZLViCEXpDJDnxg2SUHCfCJQlPIB2PBYjIKRoAIAhRNofUQNlEPDiTckuYGAbOJMzPQ6MMs QaYDQpXwC2TOEvVICiPZWqzq4CUCAjKXDvFGT4TMGr ZHVuJHGjRTlbQMFiLKFqKKJ7UQZwLHUsDY1NZaPgHYGiKuE0WAOzHSOdRTMicx5YDKJrHGOyCaDqBbPv QYPrBNKsWRagKTFyFRJxYMY9LIScUNScRN0OZcReOIGyPjO7CAKsRPFhKNIxco3JYPSlPYVvRjBkWEAh MFQaBFApDRbnGGXqANQ0GgdpRGJuRJFhHB8ECpSzYG pcHDKUZtk4UCtvX4p4QNXsNh5HU9Iss1UvKuMnBSRWYTvyXJ1cweHmPHBgJa4CM5pUDqe8JGSrQMplAs FtDQL9GhZuZwHkMZvxLHH1WDHwNnF1Sl1mEDhaMGDdXRCaOlZdIejjSPGhHpCzM0M6MHIwY9R6Cfv9Ja SyQY3UYb0WOuT1XGS3sCQoPh6FGaB5YssCCcSgNM4YVAa= ID Date Data Source [id number] 04/01/2020 07:13:58 PM EST [facility] Name Value Range Interpretation Code Description Data Shayla rce(s) Supporting Document(s) SODIUM 142 mmol/L (136-145) [facility] POTASSIUM 4.1 mmol/L (3.6-5.2) [facility] CHLORIDE 104 mmol/L (100-108) [facility] CO2 29 mmol/L (22-31) [facility] ANION GAP 9 mmol/L (7-16) [facility] UREA NITROGEN 29 mg/dL (7-24) H [facility] CREATININE 1.01 mg/dL (0.60-1.00) H [facility] BUN/CREAT RATIO 28.7 RATIO (10.0-20.0) H [facility] GLUCOSE 105 mg/dL (70-99) H [facility] CALCIUM 9.6 mg/dL (8.4-10.2) [facility] GFR 53 ml/min/1.73m2 (>59) L [facility] GFR ( AMER) >60 ml/min/1.73m2 (>59) [facility] GFR INTERPRETATION [facility] --NORMAL KIDNEY FUNCTION OR MILD DISEASE - GFR >OR= 60CHRONIC KIDNEY DISEASE - GFR 15 - 59RENAL FAILURE - GFR <15 Est. GFR calculation based on the MDRDstudy equation, which assumes a steadystate for creatinine. Est. GFR should notbe used for medication dosing. ID Date Data Source [id number] 04/01/2020 06:55:38 PM EST [facility] Name Value Range Interpretation Code Description Data Shayla rce(s) Supporting Document(s) CALCIUM IONIZED 5.08 mg/dL (4.64-5.28) [facility] e FAN IONIZED CALCIUM NORMALIZED TO PH 7.40 AN D 37 DEGREES C. ID Date Data Source [id number] 03/22/2020 09:23:38 AM EST [facility] PCName: Mary Ann FernándezKatie: 3Provider: Chayito Garnett: 03/18/2020 Reason For VisitCharmichael Rivera is here today for right wrist. Mary Ann Rivera is an established patient here for follow up. Patient is retired. History of Present IllnessPatient is seen today for follow-up evaluation of her right wrist. She returns at this time requesting a cortisone injection into the ulnar aspect of the wrist. Cortisone injections in the ulnar aspect of the wrist have given her good improvement in the past. AssessmentSOS Assessment Dragon Form: Right wrist pain PlanA cortisone injection is given into the ulnar aspect of the wrist. This is performed in the office today and she tolerates it well. She will call or return if the symptoms do not improve. Work / School Note Mary Ann Rivera is currently not working. 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 Cervical, Endocervical, ThinPrep Pap (Decator Operator) CYTOLOGY HX-------- Other Information: Post-menopausal Previous Normal Pap: 12/12/18 FINAL DIAGNOSIS---- INTERPRETATION: Negative for Intraepithelial Lesion or Malignancy. SPECIMEN ADEQUACY:Satisfactory for evaluation. Endocervical/transformation zone component present. Procedure Social History Code Duration Value Status Description Data Source(s ) Smoking 01/22/2021 12:00:00 AM EDT Non-Smoker, Non-Drink er, Non-Drug User completed Non-Smoker, Non-Drinker, Non-Drug User MEDENT (Maynard Wo man 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) Smoking 11/15/2020 12:00:00 AM EDT Former Smoker completed Former Smoker eCW1 (Formerly [facility]) Smoking 11/15/2020 12:00:00 AM EDT Former Smoker completed Former Smoker eCW1 (Formerly [facility]) Smoking 11/15/2020 12:00:00 AM EDT Former Smoker completed Former Smoker eCW1 (Formerly [facility]) Smoking 11/15/2020 12:00:00 AM EDT Former Smoker completed Former Smoker eCW1 (Formerly [facility]) Smoking 11/15/2020 12:00:00 AM EDT Former Smoker completed Former Smoker eCW1 (Formerly [facility]) Smoking 11/15/2020 12:00:00 AM EDT Former Smoker completed Former Smoker eCW1 (Formerly [facility]) Smoking 11/15/2020 12:00:00 AM EDT Former Smoker completed Former Smoker eCW1 (Formerly [facility]) Smoking 11/15/2020 12:00:00 AM EDT Former Smoker completed Former Smoker eCW1 (Formerly [facility]) Alcohol intake 10/08/2020 12:00:00 AM EDT Ex-drinker (finding) comp leted Ex- drinker (finding) [facility] Smoking 10/02/2020 12:00:00 AM EDT Former Smoker completed Former Smoker eCW1 (Formerly [facility]) Smoking 10/02/2020 12:00:00 AM EDT Former Smoker completed Former Smoker eCW1 (Formerly [facility]) Smoking 10/02/2020 12:00:00 AM EDT Former Smoker completed Former Smoker eCW1 (Formerly [facility]) Smoking 10/02/2020 12:00:00 AM EDT Former Smoker completed Former Smoker eCW1 (Formerly [facility]) Smoking 10/02/2020 12:00:00 AM EDT Former Smoker completed Former Smoker eCW1 (Formerly [facility]) Smoking 10/02/2020 12:00:00 AM EDT Former Smoker completed Former Smoker eCW1 (Formerly [facility]) Smoking 10/02/2020 12:00:00 AM EDT Former Smoker completed Former Smoker eCW1 (Formerly [facility]) Smoking 10/02/2020 12:00:00 AM EDT Former Smoker completed Former Smoker eCW1 (Formerly [facility]) Smoking 10/02/2020 12:00:00 AM EDT Former Smoker completed Former Smoker eCW1 (Formerly [facility]) Alcohol intake 09/27/2020 12:00:00 AM EDT Ex-drinker (finding) comp leted Ex- drinker (finding) [facility] Smoking 08/19/2020 12:00:00 AM EDT Patient is a former smoker completed Patient is a former smoker [facility] ([facility]) Tobacco use and exposure 03/29/2020 12:00:00 AM EST Never used co mpleted Never used [facility] Cigarette pack-years 03/29/2020 12:00:00 AM EST UNK completed [facility] Cigarettes smoked current (pack per day) - Reported 03/29/20 20 12:00:00 AM EST UNK completed [facility] Smoking 03/29/2020 12:00:00 AM EST Former smoker completed Former smoker [facility] Alcohol intake 03/29/2020 12:00:00 AM EST Not Currently completed [facility] Cigarette pack-years 03/29/2020 12:00:00 AM EST UNK completed [facility] Cigarettes smoked current (pack per day) - Reported 03/29/20 20 12:00:00 AM EST UNK completed [facility] Smoking 03/29/2020 12:00:00 AM EST Former smoker completed Former smoker [facility] Smoking 03/05/2020 12:00:00 AM EST Former Smoker completed Former Smoker eCW1 (Formerly [facility]) Smoking 03/05/2020 12:00:00 AM EST Former Smoker completed Former Smoker eCW1 (Formerly [facility]) Smoking 03/05/2020 12:00:00 AM EST Former Smoker completed Former Smoker eCW1 (Formerly [facility]) Smoking 03/05/2020 12:00:00 AM EST Former Smoker completed Former Smoker eCW1 (Formerly [facility]) Smoking 03/05/2020 12:00:00 AM EST Former Smoker completed Former Smoker eCW1 (Formerly [facility]) Smoking 03/05/2020 12:00:00 AM EST Former Smoker completed Former Smoker eCW1 (Formerly [facility]) Smoking 03/05/2020 12:00:00 AM EST Former Smoker completed Former Smoker eCW1 (Formerly [facility]) Smoking 03/05/2020 12:00:00 AM EST Former Smoker completed Former Smoker eCW1 (Formerly [facility]) Smoking 03/05/2020 12:00:00 AM EST Former Smoker completed Former Smoker eCW1 (Formerly [facility]) Smoking 03/05/2020 12:00:00 AM EST Former Smoker completed Former Smoker eCW1 (Formerly [facility]) Smoking 03/05/2020 12:00:00 AM EST Former Smoker completed Former Smoker eCW1 (Formerly [facility]) Smoking 03/05/2020 12:00:00 AM EST Former Smoker completed Former Smoker eCW1 (Formerly [facility]) Smoking 03/05/2020 12:00:00 AM EST Former Smoker completed Former Smoker eCW1 (Formerly [facility]) Smoking 03/05/2020 12:00:00 AM EST Former Smoker completed Former Smoker eCW1 (Formerly [facility]) Vital Signs ID Date Data Source UNK Name Value Range Interpretation Code Description Data Source(s) Systolic blood pressure 130 mm[Hg] 130 mm[Hg] [facility] Diastolic blood pressure 80 mm[Hg] 80 mm[Hg] [facility] Heart rate 56 /min 56 /min [facility] Body temperature 35.72 Duyen 35.72 Duyen [facility] Respiratory rate 16 /min 16 /min [facility] Body height 165.1 cm 165.1 cm [facility] Body weight 105.235 kg 105.235 kg [facility] Body mass index (BMI) [Ratio] 38.61 kg/m2 38.61 kg/m2 [facility] Oxygen saturation in Arterial blood by Pulse oximetry 98 % 98 % [facility] Systolic blood pressure 134 mm[Hg] 134 mm[Hg] [facility] ([facility] 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) Diastolic blood pressure 66 mm[Hg] 66 mm[Hg] [facility] ([facility] 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) Body height 64 [in_i] 64 [in_i] [facility] ([facility] 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) 5'4" Body weight 230.00 [lb_av] 230.00 [lb_av] MEDEN T ([facility] 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) Body mass index (BMI) [Ratio] 39.5 kg/m2 39.5 k g/m2 [facility] ([facility] 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) Body surface area Derived from formula 2.08 m2 2.08 m2 [facility] ([facility] 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) Body weight 231.6 [lb_av] 231.6 [lb_av] eCW1 ([facility]) Body height 65 [in_i] 65 [in_i] W1 ([facility]) Body mass index (BMI) [Ratio] 38.54 kg/m2 38.54 kg/m2 [facility] (Formerly [facility]) Heart rate 64 /min 64 /min W1 (Formerly [facility]) Respiratory rate 18 /min 18 /min eCW1 ([facility]) Body temperature 97.8 [degF] 97.8 [degF] eCW1 ( Formerly [facility]) Systolic blood pressure 128 mm[Hg] 128 mm[Hg] e CW1 (Formerly [facility]) Diastolic blood pressure 62 mm[Hg] 62 mm[Hg] eCW1 (Formerly [facility]) Body weight 229.2 [lb_av] 229.2 [lb_av] eCW1 ([facility]) Body height 65 [in_i] 65 [in_i] eCW1 ([facility]) Body mass index (BMI) [Ratio] 38.14 kg/m2 38.14 kg/m2 eCW1 (Formerly [facility]) Heart rate 65 /min 65 /min eCW1 (Formerly [facility]) Respiratory rate 18 /min 18 /min eCW1 ([facility]) Body temperature 97.3 [degF] 97.3 [degF] eCW1 ( [facility]ly [facility]) Systolic blood pressure 132 mm[Hg] 132 mm[Hg] e CW1 (Formerly [facility]) Diastolic blood pressure 74 mm[Hg] 74 mm[Hg] eCW1 (Formerly [facility]) Systolic blood pressure 125 mm[Hg] 125 mm[Hg] [facility] Diastolic blood pressure 56 mm[Hg] 56 mm[Hg] [facility] Heart rate 54 /min 54 /min [facility] Body temperature 36.28 Duyen 36.28 Duyen [facility] Respiratory rate 16 /min 16 /min [facility] Body height 165.1 cm 165.1 cm [facility] Body weight 103.874 kg 103.874 kg [facility] Body mass index (BMI) [Ratio] 38.11 kg/m2 38.11 kg/m2 [facility] Oxygen saturation in Arterial blood by Pulse oximetry 95 % 95 % [facility] Intraocular pressure Right eye 18 mm[Hg] 18 mm [Hg] [facility] ([facility]) Ap 12:42 PM Intraocular pressure Left eye 5 mm[Hg] 5 mm[H g] [facility] ([facility]) Ap Systolic blood pressure 130 mm[Hg] 130 mm[Hg] [facility] Diastolic blood pressure 70 mm[Hg] 70 mm[Hg] [facility] Heart rate 57 /min 57 /min [facility] Body temperature 36.17 Duyen 36.17 Duyen [facility] Respiratory rate 18 /min 18 /min [facility] Body height 165.1 cm 165.1 cm [facility] Body weight 102.331 kg 102.331 kg [facility] Body mass index (BMI) [Ratio] 37.54 kg/m2 37.54 kg/m2 [facility] Oxygen saturation in Arterial blood by Pulse oximetry 99 % 99 % [facility] Intraocular pressure Right eye 18 mm[Hg] 18 mm [Hg] [facility] ([facility]) Ap Intraocular pressure Left eye 6.5 mm[Hg] 6.5 mm [Hg] [facility] ([facility]) Ap 12:33 PM Body weight 238.2 [lb_av] 238.2 [lb_av] eCW1 ([facility]) Body height 65 [in_i] 65 [in_i] eCW1 ([facility]) Body mass index (BMI) [Ratio] 39.63 kg/m2 39.63 kg/m2 eCW1 (Formerly [facility]) Heart rate 63 /min 63 /min eCW1 (Formerly [facility]) Respiratory rate 18 /min 18 /min eCW1 ([facility]) Body temperature 98.8 [degF] 98.8 [degF] eCW1 ( Formerly [facility]) Systolic blood pressure 126 mm[Hg] 126 mm[Hg] e CW1 (Formerly [facility]) Diastolic blood pressure 84 mm[Hg] 84 mm[Hg] eCW1 (Formerly [facility]) Body surface area 2.11 m2 2.11 m2 [facility] ([facility] 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) Systolic blood pressure 158 mm[Hg] 158 mm[Hg] M [facility] ([facility] 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) Diastolic blood pressure 70 mm[Hg] 70 mm[Hg] [facility] ([facility] 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) Body height 64 [in_i] 64 [in_i] [facility] ([facility] 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) 5'4" Body weight 239.00 [lb_av] 239.00 [lb_av] MEDEN T ([facility] 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) Body mass index (BMI) [Ratio] 41.0 kg/m2 41.0 k g/m2 [facility] ([facility] 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) Body surface area Derived from formula 2.11 m2 2.11 m2 [facility] ([facility] 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) Patient Treatment Plan of Care Planned Activity Planned Date Details Description Data Source (s) tramadol hydrochloride 50 MG Oral Tablet 01/28/2021 12:00:00 AM EDT eCW1 (Formerly [facility]) tramadol hydrochloride 50 MG Oral Tablet 01/28/2021 12:00:00 AM EDT eCW1 (Formerly [facility]) tramadol hydrochloride 50 MG Oral Tablet 01/28/2021 12:00:00 AM EDT eCW1 (Formerly [facility]) Simvastatin 20 MG Oral Tablet 01/28/2021 12:00:00 AM EDT [facility] Potassium Chloride 10 MEQ Extended Release Oral Tablet 01/28/2021 12:00:00 AM EDT [facility] Losartan Potassium 100 MG Oral Tablet 01/28/2021 12:00:00 AM EDT [facility] Indapamide 2.5 MG Oral Tablet 01/28/2021 12:00:00 AM EDT [facility] Atenolol 50 MG Oral Tablet 01/28/2021 12:00:00 AM EDT [facility] Amlodipine 2.5 MG Oral Tablet 01/28/2021 12:00:00 AM EDT [facility] Naproxen 500 MG Oral Tablet 10/08/2020 12:00:00 AM EDT eCW1 (Formerly [facility]) Naproxen 500 MG Oral Tablet 10/08/2020 12:00:00 AM EDT eCW1 (Formerly [facility]) Naproxen 500 MG Oral Tablet 10/08/2020 12:00:00 AM EDT eCW1 (Formerly [facility]) Naproxen 500 MG Oral Tablet 10/08/2020 12:00:00 AM EDT eCW1 (Formerly [facility]) Naproxen 500 MG Oral Tablet 10/08/2020 12:00:00 AM EDT eCW1 (Formerly [facility]) Naproxen 500 MG Oral Tablet 10/08/2020 12:00:00 AM EDT eCW1 (Formerly [facility]) Naproxen 500 MG Oral Tablet 10/08/2020 12:00:00 AM EDT eCW1 (Formerly [facility]) Naproxen 500 MG Oral Tablet 10/08/2020 12:00:00 AM EDT eCW1 ([facility]ly [facility]) Naproxen 500 MG Oral Tablet 10/08/2020 12:00:00 AM EDT eCW1 (Formerly [facility]) Indapamide 2.5 MG Oral Tablet 09/27/2020 12:00:00 AM EDT [facility] Physical Therapy evaluate and treat 09/09/2020 12:00:00 AM EDT eCW1 (Formerly [facility]) Physical Therapy evaluate and treat 09/09/2020 12:00:00 AM EDT eCW1 (Formerly [facility]) Physical Therapy evaluate and treat 09/09/2020 12:00:00 AM EDT eCW1 (Formerly [facility]) Physical Therapy evaluate and treat 09/09/2020 12:00:00 AM EDT eCW1 (Formerly [facility]) Physical Therapy evaluate and treat 09/09/2020 12:00:00 AM EDT eCW1 (Formerly [facility]) Physical Therapy evaluate and treat 09/09/2020 12:00:00 AM EDT eCW1 (Formerly [facility]) Physical Therapy evaluate and treat 09/09/2020 12:00:00 AM EDT eCW1 (Formerly [facility]) Physical Therapy evaluate and treat 09/09/2020 12:00:00 AM EDT eCW1 (Formerly [facility]) Physical Therapy evaluate and treat 09/09/2020 12:00:00 AM EDT eCW1 (Formerly [facility]) Physical Therapy evaluate and treat 09/09/2020 12:00:00 AM EDT eCW1 (Formerly [facility]) Physical Therapy evaluate and treat 09/09/2020 12:00:00 AM EDT eCW1 (Formerly [facility]) Physical Therapy evaluate and treat 09/09/2020 12:00:00 AM EDT eCW1 (Formerly [facility]) Atenolol 50 MG Oral Tablet 03/29/2020 12:00:00 AM EST [facility] Amlodipine 2.5 MG Oral Tablet 03/29/2020 12:00:00 AM EST [facility] celecoxib 100 MG Oral Capsule [Celebrex] 03/05/2020 12:00:00 AM EST eCW1 (Formerly [facility]) celecoxib 100 MG Oral Capsule [Celebrex] 03/05/2020 12:00:00 AM EST eCW1 (Formerly [facility]) celecoxib 100 MG Oral Capsule [Celebrex] 03/05/2020 12:00:00 AM EST eCW1 (Formerly [facility]) celecoxib 100 MG Oral Capsule [Celebrex] 03/05/2020 12:00:00 AM EST eCW1 (Formerly [facility]) celecoxib 100 MG Oral Capsule [Celebrex] 03/05/2020 12:00:00 AM EST eCW1 (Formerly [facility]) celecoxib 100 MG Oral Capsule [Celebrex] 03/05/2020 12:00:00 AM EST eCW1 (Formerly [facility]) celecoxib 100 MG Oral Capsule [Celebrex] 03/05/2020 12:00:00 AM EST eCW1 (Formerly [facility]) celecoxib 100 MG Oral Capsule [Celebrex] 03/05/2020 12:00:00 AM EST eCW1 (Formerly [facility]) celecoxib 100 MG Oral Capsule [Celebrex] 03/05/2020 12:00:00 AM EST eCW1 (Formerly [facility]) celecoxib 100 MG Oral Capsule [Celebrex] 03/05/2020 12:00:00 AM EST eCW1 (Formerly [facility]) celecoxib 100 MG Oral Capsule [Celebrex] 03/05/2020 12:00:00 AM EST eCW1 (Formerly [facility]) celecoxib 100 MG Oral Capsule [Celebrex] 03/05/2020 12:00:00 AM EST eCW1 (Formerly [facility]) celecoxib 100 MG Oral Capsule [Celebrex] 03/05/2020 12:00:00 AM EST eCW1 (Formerly [facility]) celecoxib 100 MG Oral Capsule [Celebrex] 03/05/2020 12:00:00 AM EST eCW1 (Formerly [facility]) Indapamide 2.5 MG Oral Tablet 10/23/2019 12:00:00 AM EDT [facility] Simvastatin 20 MG Oral Tablet 03/17/2019 12:00:00 AM EST [facility] Losartan Potassium 100 MG Oral Tablet 03/17/2019 12:00:00 AM EST [facility] Atenolol 50 MG Oral Tablet 03/17/2019 12:00:00 AM EST [facility] Amlodipine 2.5 MG Oral Tablet 03/17/2019 12:00:00 AM EST [facility] Prednisone 10 MG Oral Tablet 01/16/2019 12:00:00 AM EDT [facility] Potassium Chloride 10 MEQ Extended Release Oral Tablet 01/14/2019 12:00:00 AM EDT [facility] Aspirin 81 MG Delayed Release Oral Tablet 12/16/2015 12:00:00 AM ED T [facility]
[2021-02-06] MEDS ORDERED: LR 1,000 ML IV SCH (14:10)
[2021-02-06] MEDS ORDERED: fentaNYL 100 MCG/2 ML INJECTION (J3010) IV PRN (14:10)
[2021-02-06] MEDS ORDERED: PERCOCET 5MG/325MG TAB PO PRN (14:10)
[2021-02-06 14:55] VITALS: BP 192/83
--- NOTE | 2021-02-06 16:41 | RO ---
OPERATIVE NOTE DATE OF OPERATION: 02/06/2021 PREOPERATIVE DIAGNOSIS AND INDICATIONS FOR SURGERY: Post-menopausal bleeding with a history of hyperplasia and an abnormal sonogram. POSTOPERATIVE DIAGNOSES: 1. Post-menopausal bleeding with a history of hyperplasia and an abnormal sonogram. 2. Bicornuate uterus, small fibroid, multiple polyps. PROCEDURES: Dilatation and curettage, hysteroscopy, MyoSure resection, with removal of all of the polyps. SURGEON: Carla Gonsales MD ROOFER VINYL COATING: None. ANESTHESIA: LMA. BRIEF DESCRIPTION OF PROCEDURE AND FINDINGS: Mary Ann was brought to the operating room where sufficient LMA anesthesia was induced. She was prepped, draped, and positioned in the usual sterile fashion with the bladder emptied. The cervix was grasped with a single-toothed tenaculum and the cervix dilated in order to allow introduction of the XL MyoSure hysteroscope. This was used to visualize the endometrial cavity. There were so many polyps present initially, although we could see the right tubal ostia, we could not even identify the left tubal ostia. We went ahead with the XL MyoSure and resected multiple polyps down to the uterine wall, following which we were able to see a slight heart shape to the fundus of the uterus. There was also posteriorly an approximately 1-cm to just under 1-cm fibroid. We did get a biopsy off of that, but we were unable to get the MyoSure in the angle to remove it entirely. We got more than 6 or 7 polyps removed, several of which were quite large filling the entire cavity and flatly secured against the anterior wall of the uterus. These were resected completely as is documented in the operative set of photos. With resection, we were able to see normal ostia on the other side and did not really see a septum in this patient. I do see a heart-shaped uterus, but not really a septum, just a large multitude of polyps. They did not seem aggressively over vascular, so I would not be surprised if they were simply hyperplastic polyps, but of course, all of this tissue was sent for pathologic evaluation. We also sampled the rest of the endometrium that was not forming polyps and sent that as well, and of course, biopsied a portion of that tiny little fibroid, but as I said, I could not get it resected with the MyoSure without risking perforation. It had a very distinctive calcified texture in appearance, consistent with inactive fibroid in this menopausal woman. I do not think it poses any significant health risk to her. We did send all of the other tissue for further evaluation with the pathologist and we also did some passes with the curette, again, to make sure that we had every thing sampled, and of course all of the polyps removed. We took some pictures as well, as are present in the record. Then, the procedure was ended. ESTIMATED BLOOD LOSS: Maybe 5 mL. FLUID REPLACEMENT: Crystalloid. COMPLICATIONS: None. CONDITION AND DISPOSITION: Mary Ann tolerated the procedure well and was recovering in the recovery room in good condition.
== END 2021-02-06 15:02 | disposition home or self-care (01) ==
LOC: M SDC 09:27
PROVIDERS: ATTEND Obstetrics & Gynecology
DX: N84.0 Polyp of corpus uteri (principal); D25.9 Leiomyoma of uterus, unspecified; Q51.3 Bicornate uterus; I45.10 Unspecified right bundle-branch block; I10 Essential (primary) hypertension; I25.10 Atherosclerotic heart disease of native coronary artery without angina pectoris; E03.9 Hypothyroidism, unspecified; E78.5 Hyperlipidemia, unspecified; M19.90 Unspecified osteoarthritis, unspecified site; K21.9 Gastro-esophageal reflux disease without esophagitis; M54.9 Dorsalgia, unspecified; Z88.0 Allergy status to penicillin; Z88.1 Allergy status to other antibiotic agents; Z79.899 Other long term (current) drug therapy; Z79.891 Long term (current) use of opiate analgesic
CPT/HCPCS: 58558; 88305; J1100; J1885; J2250; J2405; J3010

== ENCOUNTER → 2022-01-27 | Outpatient (CLI) | payer MEDICARE ==
[~2022-01-27] MED LIST changes: -KETOROLAC 60MG 2ML VIAL As Ordered ONE; -LIDOCAINE 2% 100MG/5ML SDV (FOR ANES.) As Ordered ONE; +LOSA100T45 PO; -LOSA100T50 PO; -LR 1,000 ML IV ONE; -MIDAZOLAM INJ 2MG/2ML VIAL (J2250 PER 1MG) As Ordered ONE; -ONDANSETRON 4MG/2ML VIAL As Ordered ONE; -dexameTHASONE 4 MG/ML 1ML VIAL (J1100 PER 1MG) As Ordered ONE; -fentaNYL 100 MCG/2 ML INJECTION (J3010) As Ordered ONE; -propofoL 200 MG/20 ML VIAL As Ordered ONE
== END ==
LOC: M WHC 07:21
PROVIDERS: ATTEND Obstetrics & Gynecology
DX: N95.0 Postmenopausal bleeding (principal); Z12.31 Encounter for screening mammogram for malignant neoplasm of breast

== ENCOUNTER → 2023-01-29 | Outpatient (CLI) | payer MEDICARE ==
[~2023-01-29] MED LIST changes: -LOSA100T45 PO; +LOSA100T46 PO
== END ==
LOC: M WHC 13:08
PROVIDERS: ATTEND Physician Assistant
DX: Z13.820 Encounter for screening for osteoporosis (principal); R93.89 Abnormal findings on diagnostic imaging of other specified body structures

== ENCOUNTER → 2023-02-16 | Outpatient (CLI) | payer MEDICARE | LOC: M WHC 10:58 | PROVIDERS: ATTEND Obstetrics & Gynecology | DX: Z12.31 Encounter for screening mammogram for malignant neoplasm of breast (principal) ==

== ENCOUNTER → 2024-02-18 | Outpatient (CLI) | payer MEDICARE ==
[~2024-02-18] MED LIST changes: +INDA2.5T2 PO; -INDA25TAB PO
== END ==
LOC: M WHC 08:16
PROVIDERS: ATTEND Obstetrics & Gynecology
DX: Z12.31 Encounter for screening mammogram for malignant neoplasm of breast (principal)

== ENCOUNTER → 2024-03-13 | Outpatient (CLI) | payer MEDICARE | LOC: M WHC 10:16 | PROVIDERS: ATTEND Obstetrics & Gynecology | DX: N95.0 Postmenopausal bleeding (principal) ==

== ENCOUNTER → 2024-08-31 | Outpatient (CLI) | payer MEDICARE | LOC: M WHC 10:29 | PROVIDERS: ATTEND Obstetrics & Gynecology | DX: R93.89 Abnormal findings on diagnostic imaging of other specified body structures (principal) ==